=== PATIENT | female | born 1970 | race Caucasian/White ===

== ENCOUNTER 2017-08-06 18:37 | Inpatient (IN) ==
[2017-08-06] MEDS ORDERED: Dextrose Gel 15 GM/37.5 ML TUBE PO PRN ×2 (19:43)
[2017-08-06] MEDS ORDERED: D5% in Water 1,000 ML IVC PRN (19:43)
[2017-08-06] MEDS ORDERED: *HR* Dextrose 50 % in Water (Syg) 50 ML SYRINGE IVP PRN (19:43)
[2017-08-06] MEDS ORDERED: MOM Conc 10 ML UD.LIQ PO PRN (19:48)
[2017-08-06] MEDS ORDERED: *HR* LORazepam 2 MG/ML VIAL IM PRN (19:48)
[2017-08-06] MEDS ORDERED: *HR* LORazepam 1 MG TABLET PO PRN (19:48)
[2017-08-06] MEDS ORDERED: Haloperidol Lactate 5 MG/ML VIAL IM PRN (19:48)
[2017-08-06] MEDS: clonazePAM 1 MG TABLET PO SCH (21:31)
[2017-08-06] MEDS: Nystatin SUSP 5 ML UD.LIQ PO SCH (21:32)
[2017-08-06] MEDS: Insulin LISPRO 300 UNITS/3 ML VIAL SQ SCH (21:33)
[2017-08-06] MEDS: Ibuprofen 400 MG TABLET PO PRN (21:55)
[2017-08-07] MEDS: Insulin LISPRO 300 UNITS/3 ML VIAL SQ SCH ×4 (07:59→22:04)
[2017-08-07] MEDS: clonazePAM 1 MG TABLET PO SCH (08:58)
[2017-08-07] MEDS: amLODIPine 5 MG TABLET PO SCH (08:58)
[2017-08-07] MEDS: Nystatin SUSP 5 ML UD.LIQ PO SCH ×4 (08:59→22:01)
[2017-08-07] MEDS: Nicotine 2 MG GUM BC PRN ×2 (09:02→13:22)
--- NOTE | 2017-08-07 10:23 | Psychiatry History & Physical ---
Date of Encounter: 08/07/17 Time of Encounter: 10:19 History of Present Illness Patient Stated Chief Complaint: Suicide attempt by overdose on multiple medication Medicare Admission Attestation: For traditional Medicare patients the provided hospital inpatient services are reasonable and necessary and in the case of services not specified as inpatient -only under 42 CFR 419.22 (n), that they are appropriately provided as inpatient services in accordance 42 CFR 412.3. For Critical Access Hospital the patient may reasonably be expected to be discharged or transferred to a hospital within 96 hours after admission to the Critical Access Hospital. Admitted From: Intrahospital Transfer (3B) History of Present Illness: Ms. Jacinto is a 46 year old female admitted to [facility] on the medical floor after medical stabilization. Patient overdosed on multiple medication including gabapentin, Klonopin, amitriptyline in a suicide attempt after having relationship breakup with her significant other, patient was intubated and extubated on the medical floor and was seen by psychiatry for consultation with recommendation of admission after medical clearance. Patient reports having history of depression for most of her life and history of suicide attempts when she was younger about 20 years ago, prior to admission she was getting antidepressant medication from her primary care physician but she continued to see a counselor or therapist every 2 weeks. Patient currently denied any self-harm thoughts, she is recovering from this episodes and trying to put it behind her and move forward. Please see consultation report in the system and other medical records from the medical service. Past Med Surg Social Fam HX - Past Medical History Medical history: diabetes, liver disease, migraine - Past Psychiatric History Psychiatric history: Reports: depression, prior suicide attempt - Past Surgical History Surgical History: cholecystectomy - Social History Smoking Status: Current every day smoker Smokeless Tobacco Status: No Alcohol use: rarely Drug use: none - Family History Father Hx Family Cancer: Yes (lung) Medications & Allergies Bacitracin 1 appl TP DAILY 07/28/17 [History] Gabapentin [Neurontin] 1,200 mg PO TID 07/28/17 [History] Guaifenesin [Mucinex] 600 mg PO BID 07/28/17 [History] Loratadine [Claritin] 10 mg PO DAILY 07/28/17 [History] Meclizine HCl [Verticalm] 25 mg PO TID 07/28/17 [History] Metoprolol [Lopressor] 50 mg PO DAILY 07/28/17 [History] Omeprazole [PriLOSEC] 40 mg PO DAILY 07/28/17 [History] Potassium Chloride [K-Tab ER] 20 meq PO TID 07/28/17 [History] Ranitidine HCl [Zantac] 300 mg PO DAILY 07/28/17 [History] Spironolactone [Aldactone] 50 mg PO BID 07/28/17 [History] 3 Allergy/AdvReac Type Severity Reaction Status Date / Time acetaminophen [From Percocet] Allergy Weakness Verified 08/02/17 12:11 carisoprodol [From Soma] Allergy Anaphylaxis Verified 07/28/17 14:38 codeine Allergy Anaphylaxis Verified 07/28/17 14:38 Erythromycin Base Allergy Anaphylaxis Verified 07/28/17 14:38 [From Erythrocin] lisinopril Allergy Anaphylaxis Verified 07/28/17 14:38 meperidine [From Demerol] Allergy Anaphylaxis Verified 07/28/17 14:38 olanzapine [From Zyprexa] Allergy Anaphylaxis Verified 07/28/17 14:38 Oxycodone [From Percocet] Allergy Anaphylaxis Verified 07/28/17 14:38 Penicillins Allergy Anaphylaxis Verified 07/28/17 14:38 Tetracyclines Allergy Anaphylaxis Verified 07/28/17 14:38 Review of Systems Psychiatric: Reports: depression, anxiety, abnormal sleep pattern, suicidal ideation, hopelessness Exam - HEENT Head exam IM: Present: atraumatic Eye exam IM: Present: EOMI, normal appearance, PERRL ENT exam IM: Present: normal exam - Neurological Neurological exam: Present: CN II-XII intact - Respiratory Respiratory exam IM: Present: CTAB - GI/Abdominal GI/Abdominal exam IM: Present: normal bowel sounds, soft. Absent: tenderness - Extremities Extremities exam IM: Present: full ROM - Skin Skin exam IM: Present: dry, warm - Constitutional Vitals: Temp Pulse Resp BP 97.2 F L 91 16 154/104 08/07/17 09:00 08/07/17 09:00 08/07/17 09:00 08/07/17 09:00 General appearance: age & developmentally appropriate, well-groomed, well- nourished, obese - Musculoskeletal Gait: normal, slow, other (Using a walker) Station: relaxed Strength & Tone: normal for patient - Psychiatric Patient Orientation: Yes Person, Yes Time, Yes Place Level of alertness: Alert Behavior: calm, cooperative, anxious, guarded Psychomotor activity: Slowed Eye Contact: Maintains Eye Contact Mood Description: Euthymic/stable Affect description: congruent with mood, constricted Speech Volume: Normal Speech pattern: normal rate, normal rhythm, normal tone, fluent, spontaneous Language & Vocabulary: consistent with education Thought Process: Linear, Goal Oriented Thought Content: No Suicidal ideation, No Homicidal ideation, No Overt delusions Perceptual Disturbances: No Auditory hallucinations, No Visual hallucinations Attention Span Ability: Capable of Focused Attention Memory Description: Grossly Intact Patient Reliability: Reliable Historian Fund of knowledge: Yes abstraction ability, Yes average, Yes aware of current events Intelligence Estimate: Average Judgment: Limited Insight: Partial Results - Labs Labs: Laboratory Last Values POC Glucose 120 mg/dL (70-99) H 08/07/17 07:46 Assessment and Plan (1) Severe recurrent major depression without psychotic features Current visit: Yes Status: Acute Plan: Admit inpatient for safety and stabilization, Close observation, Suicide Precautions per unit protocol, Encourage participation in unit milieu, Group Therapy, Monitor sleep, Monitor appetite Additional Plan: We will discontinue medication that patient overdosed on including Klonopin, gabapentin, amitriptyline and lithium. We will start Effexor SR 75 mg daily. Benefits and side effects were discussed patient is agreeable to start. Risks, benefits, side effects, alternatives discussed w/pt: Yes Patient agreeable to treatment: Yes
[2017-08-07] MEDS: Venlafaxine XR (24 HR) 75 MG CAP.ER.24H PO SCH (10:38)
[2017-08-07] MEDS: hydrOXYzine pamoate 25 MG CAPSULE PO PRN (20:25)
[2017-08-07] MEDS: traZODone 50 MG TABLET PO PRN (20:25)
[2017-08-08] MEDS ORDERED: Ipratropium/Albuterol Neb 3 ML IH ONE (00:42)
[2017-08-08] MEDS ORDERED: Ipratropium/Albuterol Neb 3 ML IH PRN (00:42)
[2017-08-08] MEDS: Ibuprofen 400 MG TABLET PO PRN ×2 (02:32→19:47)
[2017-08-08] MEDS: amLODIPine 5 MG TABLET PO SCH (10:22)
[2017-08-08] MEDS: Nystatin SUSP 5 ML UD.LIQ PO SCH ×4 (10:22→21:00)
[2017-08-08] MEDS: Venlafaxine XR (24 HR) 75 MG CAP.ER.24H PO SCH (10:22)
[2017-08-08] MEDS: Insulin LISPRO 300 UNITS/3 ML VIAL SQ SCH ×4 (10:35→19:55)
--- NOTE | 2017-08-08 14:45 | Psychiatry Progress Note ---
Date of Encounter: 08/08/17 Time of Encounter: 14:42 Subjective Interval history: Patient seen for follow-up. Case discussed with treatment team. Patient reports improvement sleep and appetite and feeling more adjusted. Denied any hopelessness or suicidal thoughts. She continued to be occupied with medication and somatic complaints. She participated in activities. She shared with me some of her plans after discharge from the hospital to live with her stepmom. Review of Systems Psychiatric: Reports: depression, anxiety, abnormal sleep pattern, suicidal ideation, hopelessness Results - Vital Signs Vital Signs: Temp Pulse Resp BP Pulse Ox 98.1 F 98 16 135/88 94 08/08/17 09:00 08/08/17 09:00 08/08/17 09:00 08/08/17 09:00 08/08/17 02:14 - Labs Labs: Laboratory Results - last 24 hr 08/07/17 08/07/17 08/08/17 16:51 20:14 10:20 POC Glucose 169 H 133 H 183 H 08/08/17 08/08/17 11:53 12:38 POC Glucose 182 H 134 H Assessment and Plan (1) Severe recurrent major depression without psychotic features Current visit: Yes Status: Acute Plan: Continue hospitalization, Close observation, Suicide Precautions per unit protocol, Encourage participation in unit milieu, Group Therapy, Monitor sleep, Monitor appetite Risks, benefits, side effects, alternatives discussed w/pt: Yes Patient agreeable to treatment: Yes Consult Discharge Plan - Plan Referrals: [facility] [Outside] - 08/13/17 2:00 pm (The above appointment is with Dr Moshe Gale for primary care follow up. Please call 24 hours before appointment for cancellations. ) [facility] [[facility]] - 09/04/17 3:00 pm (The above appointment for a psychiatric provider is with Krista Chambers CNP. Please arrive at 2:30pm to do paperwork and bring Insurance card, list of medications and photo ID. Please call 24 hours ahead for cancellations. ) [facility] [Outside] - 08/12/17 12:00 pm (The above appointment is with Roosevelt Pinto for outpatient mental health counselling. Please call 24 hours before appointment for cancellations.) Psychiatry Exam - Constitutional Vitals: Temp Pulse Resp BP Pulse Ox 98.1 F 98 16 135/88 94 08/08/17 09:00 08/08/17 09:00 08/08/17 09:00 08/08/17 09:00 08/08/17 02:14 General appearance: age & developmentally appropriate, well-groomed, well- nourished, obese - Musculoskeletal Gait: normal Station: relaxed Strength & Tone: normal for patient - Psychiatric Patient Orientation: Yes Person, Yes Time, Yes Place Level of alertness: Alert Behavior: calm, cooperative Psychomotor activity: Normal Eye Contact: Maintains Eye Contact Mood Description: Euthymic/stable Affect description: congruent with mood, full range Speech Volume: Normal Speech pattern: normal rate, normal rhythm, normal tone, fluent, spontaneous Language & Vocabulary: consistent with education Thought Process: Linear, Goal Oriented Thought Content: No Suicidal ideation, No Homicidal ideation, No Overt delusions Perceptual Disturbances: No Auditory hallucinations, No Visual hallucinations Attention Span Ability: Capable of Focused Attention Memory Description: Grossly Intact Patient Reliability: Reliable Historian Fund of knowledge: Yes abstraction ability, Yes aware of current events Intelligence Estimate: Average Judgment: Limited Insight: Partial
[2017-08-08] MEDS: hydrOXYzine pamoate 25 MG CAPSULE PO PRN (21:01)
[2017-08-08] MEDS: traZODone 50 MG TABLET PO PRN (21:01)
[2017-08-09] MEDS: Insulin LISPRO 300 UNITS/3 ML VIAL SQ SCH ×4 (08:29→23:59)
[2017-08-09] MEDS: Venlafaxine XR (24 HR) 75 MG CAP.ER.24H PO SCH (08:30)
[2017-08-09] MEDS: amLODIPine 5 MG TABLET PO SCH (08:30)
[2017-08-09] MEDS: Nystatin SUSP 5 ML UD.LIQ PO SCH ×3 (08:42→16:38)
[2017-08-09] MEDS: Mag Hydrox/Al Hydrox/Simeth 30 ML UDC PO PRN (13:46)
--- NOTE | 2017-08-09 15:07 | Psychiatry Progress Note ---
Date of Encounter: 08/09/17 Time of Encounter: 15:05 Subjective Interval history: Patient seen for follow-up. Case discussed was nursing staff. Patient is less anxious, less somatic, denies problem with sleep. Denies any suicidal thoughts. She is working on safety plan and activity plan. She is interacting with peers and staff. Denies any suicidal thoughts, showing more insight. Review of Systems Psychiatric: Reports: depression, anxiety, abnormal sleep pattern, suicidal ideation, hopelessness Results - Vital Signs Vital Signs: Temp Pulse Resp BP Pulse Ox 98.6 F 88 18 125/88 94 08/09/17 09:00 08/09/17 09:00 08/09/17 09:00 08/09/17 09:00 08/08/17 02:14 - Labs Labs: Laboratory Results - last 24 hr 08/08/17 08/08/17 08/09/17 16:31 19:50 08:14 POC Glucose 125 H 156 H 144 H 08/09/17 11:44 POC Glucose 130 H Assessment and Plan (1) Severe recurrent major depression without psychotic features Current visit: Yes Status: Acute Plan: Continue hospitalization, Close observation, Suicide Precautions per unit protocol, Encourage participation in unit milieu, Group Therapy, Monitor sleep, Monitor appetite Risks, benefits, side effects, alternatives discussed w/pt: Yes Patient agreeable to treatment: Yes Consult Discharge Plan - Plan Referrals: [facility] [Outside] - 08/13/17 2:00 pm (The above appointment is with Dr Moshe Gale for primary care follow up. Please call 24 hours before appointment for cancellations. ) [facility] [[facility]] - 09/04/17 3:00 pm (The above appointment for a psychiatric provider is with Krista Chambers CNP. Please arrive at 2:30pm to do paperwork and bring Insurance card, list of medications and photo ID. Please call 24 hours ahead for cancellations. ) [facility] [Outside] - 08/12/17 12:00 pm (The above appointment is with Roosevelt Pinto for outpatient mental health counselling. Please call 24 hours before appointment for cancellations.) Psychiatry Exam - Constitutional Vitals: Temp Pulse Resp BP Pulse Ox 98.6 F 88 18 125/88 94 08/09/17 09:00 08/09/17 09:00 08/09/17 09:00 08/09/17 09:00 08/08/17 02:14 General appearance: age & developmentally appropriate, well-groomed, well- nourished, obese - Musculoskeletal Gait: normal Station: relaxed Strength & Tone: normal for patient - Psychiatric Patient Orientation: Yes Person, Yes Time, Yes Place Level of alertness: Alert Behavior: calm, cooperative Psychomotor activity: Normal Eye Contact: Maintains Eye Contact Mood Description: Euthymic/stable Affect description: congruent with mood, full range Speech Volume: Normal Speech pattern: normal rate, normal rhythm, normal tone, fluent, spontaneous Language & Vocabulary: consistent with education Thought Process: Linear, Goal Oriented Thought Content: No Suicidal ideation, No Homicidal ideation, No Overt delusions Perceptual Disturbances: No Auditory hallucinations, No Visual hallucinations Attention Span Ability: Capable of Focused Attention Memory Description: Grossly Intact Patient Reliability: Reliable Historian Fund of knowledge: Yes abstraction ability, Yes aware of current events Intelligence Estimate: Average Judgment: Limited Insight: Partial
[2017-08-09] MEDS: Ibuprofen 400 MG TABLET PO PRN ×2 (16:30→22:11)
[2017-08-09] MEDS: traZODone 50 MG TABLET PO PRN (22:12)
[2017-08-09] MEDS: hydrOXYzine pamoate 25 MG CAPSULE PO PRN (22:12)
[2017-08-10] MEDS: Insulin LISPRO 300 UNITS/3 ML VIAL SQ SCH ×4 (06:50→21:08)
[2017-08-10] MEDS: Venlafaxine XR (24 HR) 75 MG CAP.ER.24H PO SCH (08:49)
[2017-08-10] MEDS: amLODIPine 5 MG TABLET PO SCH (08:50)
[2017-08-10] MEDS: Nystatin SUSP 5 ML UD.LIQ PO SCH ×5 (09:19→21:06)
[2017-08-10] MEDS: Mag Hydrox/Al Hydrox/Simeth 30 ML UDC PO PRN (12:21)
[2017-08-10] MEDS: hydrOXYzine pamoate 25 MG CAPSULE PO PRN ×2 (12:21→21:03)
[2017-08-10] MEDS: Ibuprofen 400 MG TABLET PO PRN ×2 (12:22→23:26)
--- NOTE | 2017-08-10 13:46 | Psychiatry Progress Note ---
Date of Encounter: 08/10/17 Time of Encounter: 11:30 Subjective Interval history: Patient seen for follow-up case discussed was nursing staff. She is feeling better, complain of mid insomnia, denies any problem with medication and no somatic complaints. She denies suicidal thoughts, showing more insight and motivation to stay active after discharge to prevent relapse into depression. Review of Systems Psychiatric: Reports: depression, anxiety, abnormal sleep pattern, suicidal ideation, hopelessness Results - Vital Signs Vital Signs: Temp Pulse Resp BP Pulse Ox 98 F 121 22 119/80 94 08/10/17 09:00 08/10/17 09:00 08/10/17 09:00 08/10/17 09:00 08/08/17 02:14 - Labs Labs: Laboratory Results - last 24 hr 08/09/17 08/09/17 08/10/17 16:34 22:08 06:46 POC Glucose 132 H 129 H 168 H 08/10/17 11:31 POC Glucose 155 H Assessment and Plan (1) Severe recurrent major depression without psychotic features Current visit: Yes Status: Acute Plan: Continue hospitalization, Close observation, Suicide Precautions per unit protocol, Encourage participation in unit milieu, Group Therapy, Monitor sleep, Monitor appetite Risks, benefits, side effects, alternatives discussed w/pt: Yes Patient agreeable to treatment: Yes Consult Discharge Plan - Plan Referrals: [facility] [Outside] - 08/13/17 2:00 pm (The above appointment is with Dr Moshe Gale for primary care follow up. Please call 24 hours before appointment for cancellations. ) [facility] [[facility]] - 09/04/17 3:00 pm (The above appointment for a psychiatric provider is with Krista Chambers CNP. Please arrive at 2:30pm to do paperwork and bring Insurance card, list of medications and photo ID. Please call 24 hours ahead for cancellations. ) [facility] [Outside] - 08/12/17 12:00 pm (The above appointment is with Roosevelt Pinto for outpatient mental health counselling. Please call 24 hours before appointment for cancellations.) Psychiatry Exam - Constitutional Vitals: Temp Pulse Resp BP Pulse Ox 98 F 121 22 119/80 94 08/10/17 09:00 08/10/17 09:00 08/10/17 09:00 08/10/17 09:00 08/08/17 02:14 General appearance: age & developmentally appropriate, well-groomed, well- nourished, obese - Musculoskeletal Gait: normal Station: relaxed Strength & Tone: normal for patient - Psychiatric Patient Orientation: Yes Person, Yes Time, Yes Place Level of alertness: Alert Behavior: calm, cooperative Psychomotor activity: Normal Eye Contact: Maintains Eye Contact Mood Description: Euthymic/stable Affect description: congruent with mood, full range Speech Volume: Normal Speech pattern: normal rate, normal rhythm, normal tone, fluent, spontaneous Language & Vocabulary: consistent with education Thought Process: Linear, Goal Oriented Thought Content: No Suicidal ideation, No Homicidal ideation, No Overt delusions Perceptual Disturbances: No Auditory hallucinations, No Visual hallucinations Attention Span Ability: Capable of Focused Attention Memory Description: Grossly Intact Patient Reliability: Reliable Historian Fund of knowledge: Yes abstraction ability, Yes aware of current events Intelligence Estimate: Average Judgment: Limited Insight: Partial
[2017-08-10] MEDS: traZODone 50 MG TABLET PO PRN (21:03)
[2017-08-11] MEDS: Insulin LISPRO 300 UNITS/3 ML VIAL SQ SCH ×4 (08:03→20:19)
[2017-08-11] MEDS: amLODIPine 5 MG TABLET PO SCH (09:08)
[2017-08-11] MEDS: Venlafaxine XR (24 HR) 75 MG CAP.ER.24H PO SCH (09:08)
[2017-08-11] MEDS: Nystatin SUSP 5 ML UD.LIQ PO SCH ×4 (09:09→20:20)
--- NOTE | 2017-08-11 11:13 | Psychiatry Progress Note ---
Date of Encounter: 08/11/17 Time of Encounter: 11:00 Subjective Interval history: Patient tells me "I am doing okay. I am still emotional over the situation that put me in here". She tells me that she has been reviewing and looking at her actions/reaction, trying to hurt herself via an overdose attempt by " shoving four hundred pills down my throat". She talks about how she should have done things differently and how she would do things differently in the future. She states that a breakup in a relationship is not worth hurting herself. She is working on her communication; expressing her needs and wants to other people to help get support. She currently denies any suicidal/ homicidal ideation. She currently denies any auditory/visual hallucinations. She states that she is having some problems sleeping, but she does not have her CPAP here which would help. She states that the Effexor has been helpful. She is not feeling as depressed. She states she is concerned about what will happen after she leaves here in regards to housing. She states that she knows that she currently with her stepmom for up to a month, not sure what is going to happen after that. She understands that her medications had been stopped including her lithium, Klonopin, amitriptyline and gabapentin. She will talk to her medical doctor about finding other medications to help with her pain control. She is angry still at her ex-partner who has not come to visit her while she was here but understands the situation. She states that she is preparing to be discharged soon and is making outpatient appointments to to follow-up. Review of Systems Psychiatric: Reports: depression, anxiety, abnormal sleep pattern, suicidal ideation, hopelessness Results - Vital Signs Vital Signs: Temp Pulse Resp BP Pulse Ox 97.2 F L 93 16 158/98 94 08/11/17 09:00 08/11/17 09:00 08/11/17 09:00 08/11/17 09:00 08/08/17 02:14 - Labs Labs: Laboratory Results - last 24 hr 08/10/17 08/10/17 08/10/17 11:31 16:20 20:30 POC Glucose 155 H 139 H 105 H 08/11/17 07:57 POC Glucose 151 H Assessment and Plan (1) Severe recurrent major depression without psychotic features Current visit: Yes Status: Acute Plan: Continue hospitalization, Close observation, Suicide Precautions per unit protocol, Encourage participation in unit milieu, Group Therapy, Monitor sleep Risks, benefits, side effects, alternatives discussed w/pt: Yes Patient agreeable to treatment: Yes Consult Discharge Plan - Plan Referrals: [facility] [[facility]] - 08/13/17 2:00 pm (The above appointment is with Dr Moshe Gale for primary care follow up. Please call 24 hours before appointment for cancellations. ) [facility] [[facility]] - 09/04/17 3:00 pm (The above appointment for a psychiatric provider is with Krista Chambers CNP. Please arrive at 2:30pm to do paperwork and bring Insurance card, list of medications and photo ID. Please call 24 hours ahead for cancellations. ) [facility] [[facility]] - 08/12/17 12:00 pm (The above appointment is with Roosevelt Pinto for outpatient mental health counselling. Please call 24 hours before appointment for cancellations.) Psychiatry Exam - Constitutional Vitals: Temp Pulse Resp BP Pulse Ox 97.2 F L 93 16 158/98 94 08/11/17 09:00 08/11/17 09:00 08/11/17 09:00 08/11/17 09:00 08/08/17 02:14 General appearance: obese - Musculoskeletal Gait: other (utilizes a walker for ambulation) Station: stooped Strength & Tone: normal for patient - Psychiatric Patient Orientation: Yes Person, Yes Time, Yes Place, Yes Circumstance Level of alertness: Alert Behavior: anxious Psychomotor activity: Normal Eye Contact: Maintains Eye Contact Mood Description: Anxious Affect description: congruent with mood Speech Volume: Normal Speech pattern: normal rate, normal rhythm, normal tone Language & Vocabulary: consistent with education Thought Process: Intact, Logical, Linear Thought Content: Yes Intact Attention Span Ability: Capable of Focused Attention Memory Description: Grossly Intact Patient Reliability: Questionable Historian Fund of knowledge: Yes abstraction ability Intelligence Estimate: Average Judgment: Fair Insight: Partial
[2017-08-11] MEDS: hydrOXYzine pamoate 25 MG CAPSULE PO PRN ×2 (14:36→20:40)
[2017-08-11] MEDS: Ibuprofen 400 MG TABLET PO PRN (14:36)
[2017-08-12] MEDS: Mag Hydrox/Al Hydrox/Simeth 30 ML UDC PO PRN (00:49)
[2017-08-12] MEDS: Venlafaxine XR (24 HR) 75 MG CAP.ER.24H PO SCH (08:09)
[2017-08-12] MEDS: Insulin LISPRO 300 UNITS/3 ML VIAL SQ SCH ×2 (08:10→12:04)
[2017-08-12] MEDS: amLODIPine 5 MG TABLET PO SCH (08:10)
[2017-08-12] MEDS: Nystatin SUSP 5 ML UD.LIQ PO SCH (08:31)
[2017-08-12 09:36] VITALS: BP 134/92
--- NOTE | 2017-08-12 11:27 | Discharge Summary ---
Date of Encounter: 08/12/17 Time of Encounter: 11:00 Diagnosis - Discharge Diagnosis (1) Severe recurrent major depression without psychotic features Status: Acute Medications - Discharge Medications Prescriptions: Nicotine Gum [Nicorette gum] 4 mg BC Q2H PRN 30 Days #90 gum PRN Reason: Nicotine Cravings Venlafaxine XR (24 HR) [Effexor XR] 75 mg PO DAILY 30 Days #30 cap.er.24h Bacitracin 1 appl TP DAILY 07/28/17 [History] Gabapentin [Neurontin] 1,200 mg PO TID 07/28/17 [History] Guaifenesin [Mucinex] 600 mg PO BID 07/28/17 [History] Loratadine [Claritin] 10 mg PO DAILY 07/28/17 [History] Meclizine HCl [Verticalm] 25 mg PO TID 07/28/17 [History] Metoprolol [Lopressor] 50 mg PO DAILY 07/28/17 [History] Omeprazole [PriLOSEC] 40 mg PO DAILY 07/28/17 [History] Potassium Chloride [K-Tab ER] 20 meq PO TID 07/28/17 [History] Ranitidine HCl [Zantac] 300 mg PO DAILY 07/28/17 [History] Spironolactone [Aldactone] 50 mg PO BID 07/28/17 [History] Albuterol Sulfate [Albuterol Inhaler] 2 puff IH [id number] PRN inhaler 08/12/17 [ Rx] Citalopram [CeleXA] 40 mg PO DAILY tablet 08/12/17 [Rx] Insulin LISPRO [HumaLOG] 0 units SQ HS vial 08/12/17 [Rx] Insulin LISPRO [HumaLOG] 0 units SQ TIDAC vial 08/12/17 [Rx] Nicotine Gum [Nicorette gum] 4 mg BC Q2H PRN 30 Days #90 gum 08/12/17 [Rx] Venlafaxine XR (24 HR) [Effexor XR] 75 mg PO DAILY 30 Days #30 cap.er.24h [Rx] 3 Allergy/AdvReac Type Severity Reaction Status Date / Time acetaminophen [From Percocet] Allergy Weakness Verified 08/02/17 12:11 carisoprodol [From Soma] Allergy Anaphylaxis Verified 07/28/17 14:38 codeine Allergy Anaphylaxis Verified 07/28/17 14:38 Erythromycin Base Allergy Anaphylaxis Verified 07/28/17 14:38 [From Erythrocin] lisinopril Allergy Anaphylaxis Verified 07/28/17 14:38 meperidine [From Demerol] Allergy Anaphylaxis Verified 07/28/17 14:38 olanzapine [From Zyprexa] Allergy Anaphylaxis Verified 07/28/17 14:38 Oxycodone [From Percocet] Allergy Anaphylaxis Verified 07/28/17 14:38 Penicillins Allergy Anaphylaxis Verified 07/28/17 14:38 Tetracyclines Allergy Anaphylaxis Verified 07/28/17 14:38 Provider Date of admission: 08/06/17 18:37 Primary care physician: PCP NONE Psychiatry Exam - Constitutional Vitals: Temp Pulse Resp BP Pulse Ox 97.9 F 98 16 134/92 94 08/12/17 09:00 08/12/17 09:00 08/12/17 09:00 08/12/17 09:00 08/08/17 02:14 General appearance: age & developmentally appropriate - Musculoskeletal Gait: other (Utilizes walker) Station: relaxed Strength & Tone: normal for patient - Psychiatric Patient Orientation: Yes Person, Yes Time, Yes Place, Yes Circumstance Level of alertness: Alert Behavior: calm Psychomotor activity: Normal Eye Contact: Maintains Eye Contact Mood Description: Depressed (mild) Affect description: congruent with mood Speech Volume: Normal Speech pattern: normal rate, normal rhythm, normal tone Language & Vocabulary: consistent with education Thought Process: Intact, Logical, Linear, Goal Oriented Thought Content: Yes Intact Attention Span Ability: Capable of Focused Attention Memory Description: Grossly Intact Patient Reliability: Reliable Historian Fund of knowledge: Yes abstraction ability Intelligence Estimate: Average Judgment: Good Insight: Full Hospital Course Hospital course: Ms. Jacinto is a 46 year old female who was admitted after a suicide attempt and placed on a medical floor till medically cleared for admission onto the 1A unit for treatment of her mental health. Her medications were adjusted and she was started on Effexor XR targeting her depressive symptoms. She was attending groups and individual therapy. She discussed and processed her reaction and suicide attempt. She understaood that some of her medications had been adjusted secondary to her overdose. She will be living with her step mother when discharged and will continue follow up therapy dealing with her life situation and move forward in finding a more stable resolution. She denies any side effects of her medications. She tells me "I'm okay". She talked about having an upset stomach from something she ate the previous night, but feeling better and stable in her emotional health and ready to discharge. She is still having an issue with sleep and does not find the Trazodone to be helpful. She believes it has to do in large part secondary to not having CPAP and the type of bed she is sleeping in. She is not as depressed as she had been and is hopeful and found comfort in the help she received. She has more energy and is not isolating as she had been. She denies SI/HI, A/V hallucination. Time spent discussing smoking cessation with patient: 3 to 10 minutes Does patient wish to continue nicotine replacement upon disc: Yes (Wants nicotine gum to help stop smoking) - Time Spent with Patient Total time spent providing and/or coordinating discharge services: 25 min Less than 30 minutes Assessment and Plan - Patient/Caregiver Discharge Instructions Activity: resume usual activities as tolerated Diet: diabetic diet - Follow up Plan Follow up with: [facility] [Outside] - 08/13/17 2:00 pm (The above appointment is with Dr Moshe Gale for primary care follow up. Please call 24 hours before appointment for cancellations. ) [facility] [Outside] - 09/04/17 3:00 pm (The above appointment for a psychiatric provider is with Krista Chambers CNP. Please arrive at 2:30pm to do paperwork and bring Insurance card, list of medications and photo ID. Please call 24 hours ahead for cancellations. ) [facility] [Outside] - 08/12/17 12:00 pm (The above appointment is with Roosevelt Pinto for outpatient mental health counselling. Please call 24 hours before appointment for cancellations.) Functional capacity at discharge: uses cane/walker Overall status at discharge: Stable Disposition: Home, Self-Care Quality - Multiple Antipsychotics Patient discharged on 2 or more antipsychotic medications: No Procedures - Procedures Procedures: Medication Management, Crisis Stabilization, Supportive Therapy, Group Therapy, Psychoeducational Therapy
[2017-08-12] MEDS: Ibuprofen 400 MG TABLET PO PRN (12:06)
== END 2017-08-12 12:10 | disposition home or self-care (01) | DRG 751 ==
LOC: 1ANU 18:37 → SUATTDRO 18:37
PROVIDERS: ADMIT Psychiatry & Neurology Psychiatry; ATTEND Psychiatry & Neurology Psychiatry

== ENCOUNTER 2018-01-23 13:59 | Inpatient (IN) ==
[2018-01-23] MEDS ORDERED: 0.9 % Sodium Chloride 1,000 ML IVC ONE (14:03)
[2018-01-23] MEDS ORDERED: Albuterol 2.5 MG/3 ML NEBULIZER IH ONE (14:03)
[2018-01-23] MEDS ORDERED: Ondansetron 4 MG/2 ML VIAL ONE (14:03)
[2018-01-23] MEDS ORDERED: 0.9 % Sodium Chloride 1,000 ML ONE (14:05)
[2018-01-23] MEDS ORDERED: Ondansetron 4 MG/2 ML VIAL IVP ONE (14:17)
[2018-01-23 14:24] LABS: Basophils # 0.1 K/mcL (0.0-0.2); Basophils % 1.1 %; Eosinophils # 0.1 K/mcL (0.0-0.6); Eosinophils % 1.2 %; Hematocrit 44.7 % (35.3-44.9); Hemoglobin 15.1 g/dL (11.5-15.4); Immature Granulocytes % 2.5 % (0-4); Lymphocytes # 2.4 K/mcL (0.6-4.6); Lymphocytes % 28.5 %; Mean Corpuscular HGB Conc 33.8 g/dL (31.6-35.5); Mean Corpuscular Hemoglobin 28.7 pg (28.0-33.3); Mean Platelet Volume 9.9 fL (9.4-12.4); Monocytes # 0.7 K/mcL (0.0-1.3); Monocytes % 7.6 %; Neutrophils # 5.1 K/mcL (1.6-8.9); Platelet Count 238 K/mcL (140-400); Red Blood Count 5.26 M/mcL (3.82-4.97); Red Cell Distribution Width 15.4 % (11.5-14.5); Segmented Neutrophils % 59.1 %
--- NOTE | 2018-01-23 14:26 | Emergency Department Note ---
Disposition Clinical Impression: Suicide attempt Overdose Qualifiers: Encounter type: initial encounter Injury intent: intentional self-harm Qualified Code(s): T50.902A - Poisoning by unspecified drugs, medicaments and biological substances, intentional self-harm, initial encounter Disposition: Admitted As Inpatient Condition: Fair Referrals: NONE,PCP [Primary Care Provider] - Forms: ED Satisfaction Letter Time of Disposition: 15:23 General Adult HPI - General Chief complaint: ED Overdose Stated complaint: poos OD Time Seen by Provider: 01/23/18 14:03 Source: patient, EMS Mode of arrival: EMS Limitations: no limitations Nursing Notes Reviewed: Yes Vital Signs Reviewed: Yes - History of Present Illness HPI Narrative: 47-year-old female with significant past medical history of multiple suicide attempts by ingestion previously presenting to the emergency department with drug ingestion. Patient states stated she was going to break up with her so she intentionally took multiple doses of her home medications. She discloses taking 100-99mg potassium pills, 25-5mg Zyprexa pills, 85-100mg trazodone pills. Zyprexa was a previous prescription. The potassium pills her from [id number] in the trazodone pills her dogs. Patient states she purposely took the medications and attempt to hurt herself. Patient denies any other intentional ingestions. She states she is feeling "full" in her abdomen and having some nausea but denies any other symptoms at this time. Pain Scale: 0 - Related Data Home Medications Medication Instructions Recorded Confirmed Bacitracin 1 appl TP DAILY 07/28/17 08/07/17 Gabapentin [Neurontin] 1,200 mg PO TID 07/28/17 08/07/17 Guaifenesin [Mucinex] 600 mg PO BID 07/28/17 08/07/17 Loratadine [Claritin] 10 mg PO DAILY 07/28/17 08/07/17 Meclizine HCl [Verticalm] 25 mg PO TID 07/28/17 08/07/17 Metoprolol [Lopressor] 50 mg PO DAILY 07/28/17 08/07/17 Omeprazole [PriLOSEC] 40 mg PO DAILY 07/28/17 08/07/17 Potassium Chloride [K-Tab ER] 20 meq PO TID 07/28/17 08/07/17 Ranitidine HCl [Zantac] 300 mg PO DAILY 07/28/17 08/07/17 Spironolactone [Aldactone] 50 mg PO BID 07/28/17 08/07/17 Previous Rx's Medication Instructions Recorded Albuterol Sulfate [Albuterol 2 puff IH [id number] PRN inhaler 08/12/17 Inhaler] Citalopram [CeleXA] 40 mg PO DAILY tablet 08/12/17 Insulin LISPRO [HumaLOG] 0 units SQ HS vial 08/12/17 Insulin LISPRO [HumaLOG] 0 units SQ TIDAC vial 08/12/17 Nicotine Gum [Nicorette gum] 4 mg BC Q2H PRN 30 Days #90 gum 08/12/17 Venlafaxine XR (24 HR) [Effexor XR] 75 mg PO DAILY 30 Days #30 08/12/17 cap.er.24h Allergies Allergy/AdvReac Type Severity Reaction Status Date / Time acetaminophen [From Percocet] Allergy Weakness Verified 08/02/17 12:11 carisoprodol [From Soma] Allergy Anaphylaxis Verified 07/28/17 14:38 codeine Allergy Anaphylaxis Verified 07/28/17 14:38 Erythromycin Base Allergy Anaphylaxis Verified 07/28/17 14:38 [From Erythrocin] lisinopril Allergy Anaphylaxis Verified 07/28/17 14:38 meperidine [From Demerol] Allergy Anaphylaxis Verified 07/28/17 14:38 olanzapine [From Zyprexa] Allergy Anaphylaxis Verified 07/28/17 14:38 Oxycodone [From Percocet] Allergy Anaphylaxis Verified 07/28/17 14:38 Penicillins Allergy Anaphylaxis Verified 07/28/17 14:38 Tetracyclines Allergy Anaphylaxis Verified 07/28/17 14:38 Limitations: ROS unobtainable due to patients medical condition Past Medical History - Past Medical History Attestation: Yes The following information was validated with the patient. Source: old records reviewed Medical history: Reports: cirrhosis, diabetes, GERD, liver disease, migraine, renal disease Surgical history: Reports: cholecystectomy Psychiatric history: Reports: bipolar, depression, PTSD, prior suicide attempt - Social History Smoking Status: Current every day smoker Smokeless Tobacco Status: No Alcohol use: Reports: rarely Drug use: Reports: opiates Physical Exam - General Limitations: no limitations General appearance: alert - Head Head exam: atraumatic, normocephalic, normal inspection - Eye Eye exam: Absent: scleral icterus, conjunctival injection - ENT ENT exam: mucous membranes dry - Neck Neck exam: Present: normal inspection. Absent: tenderness - Chest Chest inspection: Present: normal inspection, symmetric chest wall rise. Absent: tenderness, rash - Respiratory Respiratory exam: Present: normal lung sounds bilaterally. Absent: respiratory distress, wheezes - Cardiovascular Cardiovascular exam: Present: regular rate, normal rhythm, normal heart sounds - Abdominal Exam Abdominal exam: Present: soft, tenderness. Absent: distention, guarding, rebound, rigidity Abdominal tenderness: Present: diffuse, mild - Extremities Exam Extremities exam: Present: normal inspection, full ROM - Neurological Exam Neurological exam: Present: alert, oriented X3 - Psychiatric Psychiatric exam: Present: suicidal ideation - Skin Skin exam: Present: warm, intact Course Course Narrative: 47-year-old female presenting with intentional overdose. Multiple medications. Pharmacy at bedside. Patient given 9 mL of albuterol. Patient also received activated charcoal. Chest x-ray and KUB completed. I spoke with poison control center who suggested provide the patient with 2 g of magnesium due to QTC 513. They recommend other screening labs. At this time will perform medical clear ance labs with acetaminophen Tylenol, etc. Disposition will be admission for medical clearance and then psychiatric evaluation. Pending results. - Reevaluation(s) Reevaluation #1: Patient's laboratory analysis unchanged from baseline. Patient remains alert and oriented 3 and hemodynamically stable in the room. At this time will plan to admit her to the ICU for further evaluation and treatment for her overdose. I spoke with the market risk manager sales operations analyst Dr. Tyler who agrees to accept the patient at this time. Patient will be admitted with a pink slip. Vital Signs Temperature 97.9 F 01/23/18 14:02 Pulse Rate 73 01/23/18 14:02 Respiratory Rate 16 01/23/18 14:02 Blood Pressure 120/77 01/23/18 14:02 O2 Sat by Pulse Oximetry 98 01/23/18 14:02 Temperature 97.9 F 01/23/18 14:02 Pulse Rate 83 01/23/18 15:06 Respiratory Rate 26 01/23/18 15:06 Blood Pressure 139/84 01/23/18 15:06 O2 Sat by Pulse Oximetry 99 01/23/18 15:06 Oxygen Delivery Oxygen Delivery Nasal Cannula Medical Decision Making - Lab Data Result diagrams: 01/23/18 14:08 01/23/18 14:08 Lab Results 01/23/18 01/23/18 01/23/18 Range/Units 14:08 14:08 14:08 WBC 8.5 (4.3-11.1) K/mcL RBC 5.26 H (3.82-4.97) M/mcL Hgb 15.1 (11.5-15.4) g/dL Hct 44.7 (35.3-44.9) % MCV 85.0 (83.0-100.0) fL MCH 28.7 (28.0-33.3) pg MCHC 33.8 (31.6-35.5) g/dL RDW 15.4 H (11.5-14.5) % Plt Count 238 (140-400) K/mcL MPV 9.9 (9.4-12.4) fL Immature Gran % 2.5 (0-4) % Seg Neutrophils % 59.1 % Lymphocytes % 28.5 % Monocytes % 7.6 % Eosinophils % 1.2 % Basophils % 1.1 % Neutrophils # 5.1 (1.6-8.9) K/mcL Lymphocytes # 2.4 (0.6-4.6) K/mcL Monocytes # 0.7 (0.0-1.3) K/mcL Eosinophils # 0.1 (0.0-0.6) K/mcL Basophils # 0.1 (0.0-0.2) K/mcL Sodium 136 (136-145) mEq/L Potassium 4.0 (3.5-5.1) mEq/L Chloride 105 (98-107) mEq/L Carbon Dioxide 24 (23-29) mEq/L BUN 18 (6-20) mg/dL Creatinine 0.70 (0.60-1.20) mg/dL Est GFR ( Amer) > 60 (> 60) Est GFR (Non-Af Amer) > 60 (> 60) BUN/Creatinine Ratio 26 (6-26) Glucose 304 H (70-105) mg/dL Calculated Osmolality 295 (280-300) Lactic Acid 2.9 H (0.5-2.2) mmol/L Calcium 8.7 (8.6-10.3) mg/dL Total Bilirubin 0.4 (0.3-1.0) mg/dL Direct Bilirubin 0.1 (0.0-0.2) mg/dL Indirect Bilirubin 0.3 (0.0-1.2) mg/dL AST 11 L (13-39) Units/L ALT 21 (7-52) Units/L Alkaline Phosphatase 150 H (34-104) Units/L Serum Total Protein 6.1 L (6.4-8.9) g/dL Albumin 3.7 (3.5-5.7) g/dL Globulin 2.4 (2.4-3.5) g/dL Albumin/Globulin Ratio 1.5 (1.1-2.2) Urine Color (Yellow) Urine Clarity (Clear) Urine pH (5.0-8.0) pH Units Ur Specific [place] (1.010-1.025) Urine Protein (Neg-Trace) mg/dL Urine Glucose (UA) (Normal) mg/dL Urine Ketones (Negative) mg/dL Urine Blood (Negative) Urine Nitrite (Negative) Urine Bilirubin (Negative) Urine Urobilinogen (Normal) mg/dL Ur Leukocyte Esterase (Negative) Salicylates < 2.5 L (15.0-30.0) mg/dL Urine Opiates Screen (Vendri=320) ng/mL Acetaminophen < 10 L (10-20) mcg/mL Ur Barbiturates Screen (Qhtxxb=899) ng/mL Ur Phencyclidine Scrn (Cutoff=25) ng/mL Ur Amphetamines Screen (Zkvynn=3148) ng/mL U Benzodiazepines Scrn (Tfckcc=961) ng/mL Urine Cocaine Screen (Cutoff= 300) ng/mL U Marijuana (THC) Screen (Cutoff = 50) ng/mL Ur Drug Screen Interp Ethyl Alcohol < 10 (Less than 10) mg/dL 01/23/18 01/23/18 Range/Units 14:33 14:33 WBC (4.3-11.1) K/mcL RBC (3.82-4.97) M/mcL Hgb (11.5-15.4) g/dL Hct (35.3-44.9) % MCV (83.0-100.0) fL MCH (28.0-33.3) pg MCHC (31.6-35.5) g/dL RDW (11.5-14.5) % Plt Count (140-400) K/mcL MPV (9.4-12.4) fL Immature Gran % (0-4) % Seg Neutrophils % % Lymphocytes % % Monocytes % % Eosinophils % % Basophils % % Neutrophils # (1.6-8.9) K/mcL Lymphocytes # (0.6-4.6) K/mcL Monocytes # (0.0-1.3) K/mcL Eosinophils # (0.0-0.6) K/mcL Basophils # (0.0-0.2) K/mcL Sodium (136-145) mEq/L Potassium (3.5-5.1) mEq/L Chloride (98-107) mEq/L Carbon Dioxide (23-29) mEq/L BUN (6-20) mg/dL Creatinine (0.60-1.20) mg/dL Est GFR ( Amer) (> 60) Est GFR (Non-Af Amer) (> 60) BUN/Creatinine Ratio (6-26) Glucose (70-105) mg/dL Calculated Osmolality (280-300) Lactic Acid (0.5-2.2) mmol/L Calcium (8.6-10.3) mg/dL Total Bilirubin (0.3-1.0) mg/dL Direct Bilirubin (0.0-0.2) mg/dL Indirect Bilirubin (0.0-1.2) mg/dL AST (13-39) Units/L ALT (7-52) Units/L Alkaline Phosphatase (34-104) Units/L Serum Total Protein (6.4-8.9) g/dL Albumin (3.5-5.7) g/dL Globulin (2.4-3.5) g/dL Albumin/Globulin Ratio (1.1-2.2) Urine Color Yellow (Yellow) Urine Clarity Clear (Clear) Urine pH 5.0 (5.0-8.0) pH Units Ur Specific [place] 1.019 (1.010-1.025) Urine Protein Negative (Neg-Trace) mg/dL Urine Glucose (UA) >=1000 H (Normal) mg/dL Urine Ketones Negative (Negative) mg/dL Urine Blood Negative (Negative) Urine Nitrite Negative (Negative) Urine Bilirubin Negative (Negative) Urine Urobilinogen Normal (Normal) mg/dL Ur Leukocyte Esterase Negative (Negative) Salicylates (15.0-30.0) mg/dL Urine Opiates Screen Negative (Cummgh=771) ng/mL Acetaminophen (10-20) mcg/mL Ur Barbiturates Screen Negative (Lwxgwa=228) ng/mL Ur Phencyclidine Scrn Negative (Cutoff=25) ng/mL Ur Amphetamines Screen Negative (Robedy=2065) ng/mL U Benzodiazepines Scrn Negative (Guyrww=500) ng/mL Urine Cocaine Screen Negative (Cutoff= 300) ng/mL U Marijuana (THC) Screen Negative (Cutoff = 50) ng/mL Ur Drug Screen Interp See Below Ethyl Alcohol (Less than 10) mg/dL - EKG Data EKG #1 EKG attestation: Yes I reviewed and interpreted this EKG. EKG results narrative: Sinus rhythm. 70 beats for minute. IL interval 151, QRS 89, QTC 513. No sign of acute ST segment elevation or ischemia.
--- NOTE | 2018-01-23 14:28 | Emergency Department Note ---
Disposition Clinical Impression: Overdose Qualifiers: Encounter type: initial encounter Injury intent: intentional self-harm Qualified Code(s): T50.902A - Poisoning by unspecified drugs, medicaments and biological substances, intentional self-harm, initial encounter Disposition: Still a Patient Referrals: NONE,PCP [Primary Care Provider] - General Adult HPI - General Chief complaint: ED Overdose Stated complaint: poos OD Time Seen by Provider: 01/23/18 14:03 Source: patient Limitations: no limitations Nursing Notes Reviewed: Yes Vital Signs Reviewed: Yes - History of Present Illness HPI Narrative: ED ATTESTATION NOTE: I examined this patient and my medical decision-making was reviewed with the Resident Physician/MANAGER MOUNTAIN/PA/Student. I have personally performed a face to face evaluation on this patient & I agree with the documented findings, disposition and treatment plan as described except to the extent set forth below. Patient was seen with emergency medicine resident Desire Motley please see copy of her note for details of this encounter Briefly: 47-year-old female by EMS for "overdose". Patient's history prior suicide attempts and drug ingestions history includes but is not limited to bipolar disease PTSD renal disease Has cirrhosis anemia GERD diverticulitis migraines restless leg syndrome she took 100 potassium tablets over 99 mg each 25 olanzapine tablets that were 5 mg each and 5 trazodone tablets which were 100 mg each. Patient is awake and alert perhaps slightly tired but not somnolent maintaining her airway conversant and cooperative she did specifically explicitly state she took this because she wanted to go over with her 1 at home her kill herself. Patient is getting a chest x-ray KUB EKG shows the beginning of the QRS 1 QT interval prolonged at 510 ms. Patient with 2 mg of IV push magnesium for this. Patient will also get oral charcoal. Patient will get screening labs. Patient will be admitted possibly to the ICU for evaluation and medical clearance and then she will follow-up when been medically cleared for mental health. Providing 45 minutes critical care service for this patient, patient is also getting albuterol treatment against presumptive hyperkalemia. Admission disposition workup pending Pain Scale: 0 - Related Data Home Medications Medication Instructions Recorded Confirmed Bacitracin 1 appl TP DAILY 07/28/17 08/07/17 Gabapentin [Neurontin] 1,200 mg PO TID 07/28/17 08/07/17 Guaifenesin [Mucinex] 600 mg PO BID 07/28/17 08/07/17 Loratadine [Claritin] 10 mg PO DAILY 07/28/17 08/07/17 Meclizine HCl [Verticalm] 25 mg PO TID 07/28/17 08/07/17 Metoprolol [Lopressor] 50 mg PO DAILY 07/28/17 08/07/17 Omeprazole [PriLOSEC] 40 mg PO DAILY 07/28/17 08/07/17 Potassium Chloride [K-Tab ER] 20 meq PO TID 07/28/17 08/07/17 Ranitidine HCl [Zantac] 300 mg PO DAILY 07/28/17 08/07/17 Spironolactone [Aldactone] 50 mg PO BID 07/28/17 08/07/17 Previous Rx's Medication Instructions Recorded Albuterol Sulfate [Albuterol 2 puff IH [id number] PRN inhaler 08/12/17 Inhaler] Citalopram [CeleXA] 40 mg PO DAILY tablet 08/12/17 Insulin LISPRO [HumaLOG] 0 units SQ HS vial 08/12/17 Insulin LISPRO [HumaLOG] 0 units SQ TIDAC vial 08/12/17 Nicotine Gum [Nicorette gum] 4 mg BC Q2H PRN 30 Days #90 gum 08/12/17 Venlafaxine XR (24 HR) [Effexor XR] 75 mg PO DAILY 30 Days #30 08/12/17 cap.er.24h Allergies Allergy/AdvReac Type Severity Reaction Status Date / Time acetaminophen [From Percocet] Allergy Weakness Verified 08/02/17 12:11 carisoprodol [From Soma] Allergy Anaphylaxis Verified 07/28/17 14:38 codeine Allergy Anaphylaxis Verified 07/28/17 14:38 Erythromycin Base Allergy Anaphylaxis Verified 07/28/17 14:38 [From Erythrocin] lisinopril Allergy Anaphylaxis Verified 07/28/17 14:38 meperidine [From Demerol] Allergy Anaphylaxis Verified 07/28/17 14:38 olanzapine [From Zyprexa] Allergy Anaphylaxis Verified 07/28/17 14:38 Oxycodone [From Percocet] Allergy Anaphylaxis Verified 07/28/17 14:38 Penicillins Allergy Anaphylaxis Verified 07/28/17 14:38 Tetracyclines Allergy Anaphylaxis Verified 07/28/17 14:38 Past Medical History - Past Medical History Medical history: Reports: cirrhosis, diabetes, GERD, liver disease, migraine, renal disease Surgical history: Reports: cholecystectomy Psychiatric history: Reports: bipolar, depression, PTSD, prior suicide attempt - Social History Smoking Status: Current every day smoker Smokeless Tobacco Status: No Alcohol use: Reports: rarely Drug use: Reports: opiates Physical Exam - General Limitations: no limitations Course Vital Signs Temperature 97.9 F 01/23/18 14:02 Pulse Rate 73 01/23/18 14:02 Respiratory Rate 16 01/23/18 14:02 Blood Pressure 120/77 01/23/18 14:02 O2 Sat by Pulse Oximetry 98 01/23/18 14:02 Temperature 97.9 F 01/23/18 14:02 Pulse Rate 77 01/23/18 14:19 Respiratory Rate 26 01/23/18 14:19 Blood Pressure 123/71 01/23/18 14:19 O2 Sat by Pulse Oximetry 98 01/23/18 14:19 Oxygen Delivery Oxygen Delivery Aerosol Mask Medical Decision Making - Lab Data Result diagrams: 01/23/18 14:08 Lab Results 01/23/18 Range/Units 14:08 WBC 8.5 (4.3-11.1) K/mcL RBC 5.26 H (3.82-4.97) M/mcL Hgb 15.1 (11.5-15.4) g/dL Hct 44.7 (35.3-44.9) % MCV 85.0 (83.0-100.0) fL MCH 28.7 (28.0-33.3) pg MCHC 33.8 (31.6-35.5) g/dL RDW 15.4 H (11.5-14.5) % Plt Count 238 (140-400) K/mcL MPV 9.9 (9.4-12.4) fL Immature Gran % 2.5 (0-4) % Seg Neutrophils % 59.1 % Lymphocytes % 28.5 % Monocytes % 7.6 % Eosinophils % 1.2 % Basophils % 1.1 % Neutrophils # 5.1 (1.6-8.9) K/mcL Lymphocytes # 2.4 (0.6-4.6) K/mcL Monocytes # 0.7 (0.0-1.3) K/mcL Eosinophils # 0.1 (0.0-0.6) K/mcL Basophils # 0.1 (0.0-0.2) K/mcL
[2018-01-23 14:40] LABS: Bilirubin,Urine Negative (Negative); Blood,Urine Negative (Negative); Clarity,Urine Clear (Clear); Color,Urine Yellow (Yellow); Glucose,Urine (UA) >=1000 mg/dL (Normal); Ketones,Urine Negative (Negative); Leukocyte Esterase,Urine Negative (Negative); Nitrite,Urine Negative (Negative); Protein,Urine Negative (Neg-Trace); Specific Gravity,Urine 1.019 (1.010-1.025); Urobilinogen,Urine Normal (Normal)
[2018-01-23 14:48] LABS: Acetaminophen < 10 mcg/mL (10-20); Alanine Aminotransferase 21 Units/L (7-52); Albumin 3.7 g/dL (3.5-5.7); Albumin/Globulin Ratio 1.5 (1.1-2.2); Alkaline Phosphatase 150 Units/L (34-104); Aspartate Amino Transferase 11 Units/L (13-39); BUN/Creatinine Ratio 26 (6-26); Bilirubin,Direct 0.1 mg/dL (0.0-0.2); Bilirubin,Indirect 0.3 mg/dL (0.0-1.2); Bilirubin,Total 0.4 mg/dL (0.3-1.0); Blood Urea Nitrogen 18 mg/dL (6-20); Calcium 8.7 mg/dL (8.6-10.3); Carbon Dioxide 24 mEq/L (23-29); Chloride 105 mEq/L (98-107); Ethanol < 10 mg/dL (Less than 10); Globulin 2.4 g/dL (2.4-3.5); Glucose 304 mg/dL (70-105); Osmolality,Calculated 295 (280-300); Salicylate < 2.5 mg/dL (15.0-30.0); Sodium 136 mEq/L (136-145); Total Protein 6.1 g/dL (6.4-8.9); eGFR For Non-African Americans > 60 (> 60)
[2018-01-23 14:50] LABS: Amphetamine Screen,Urine Negative ng/mL (Cutoff=1000); Barbiturate Screen,Urine Negative ng/mL (Cutoff=200); Benzodiazepines Screen,Urine Negative ng/mL (Cutoff=200); Cannabinoid Screen,Urine Negative ng/mL (Cutoff = 50); Cocaine Screen,Urine Negative ng/mL (Cutoff= 300); Opiate Screen,Urine Negative ng/mL (Cutoff=300); Phencyclidine Screen,Urine Negative ng/mL (Cutoff=25)
[2018-01-23] MEDS ORDERED: *HR* Magnesium Sulfate 2 GM/50 ML PIGGYBACK IVPB ONE (15:12)
--- NOTE | 2018-01-23 16:01 | Pulmonology History & Physical ---
Date of Encounter: 01/24/18 Time of Encounter: 15:25 Assessment and Plan (1) Drug overdose Current visit: Yes Status: Acute Patient has taken significant life threatening dose of multiple medication which can be deadly due to the amount of the medications that she took and the poison control has been contacted already by the emergency room physician and the patient was treated appropriately according to poison control recommendations. Clearly patient needs to be monitored in the intensive care unit especially with the QT interval prolongation on her ECG. Critical care performed: Time is exclusive of separately billable procedures. Time includes: direct patient care, patient reassessment, coordination of patient care, interpretation of data (laboratory data, radiology data, and respiratory data), review of patient's medical records, medical consultation and documentation of patient care. Procedures excluded from critical care time: 35 minutes Qualifiers: Encounter type: initial encounter Injury intent: intentional self-harm Qualified Code(s): T50.902A - Poisoning by unspecified drugs, medicaments and biological substances, intentional self-harm, initial encounter (2) Suicide attempt Current visit: Yes Status: Acute She has tried to kill herself in the past and she has been seen by psychiatrist. She will be monitored with a sitter and psych consult. (3) Suicide attempt by multiple drug overdose Current visit: No Status: Acute At this time and be supportive care and I am hoping there will be no major co mplications. Follow-up on the labs and EKG. Qualifiers: Encounter type: initial encounter Qualified Code(s): T50.902A - Poisoning by unspecified drugs, medicaments and biological substances, intentional self- harm, initial encounter (4) ELISSA (obstructive sleep apnea) Current visit: Yes Status: Chronic This is to be addressed as outpatient History of Present Illness Chief complaint: Suicidal attempt and overdose HPI: Ms. Jacinto is a 47 year old female with significant past medical history of multiple attempts of suicide and she was in the ICU at [facility] previously for suicide by ingestion significant amount of medications. Patient stated that she wanted to kill herself and she took multiple doses of her on medications as well as [id number]. She claims she took 100 tablets of potassium pills 99 mEq and 25 pills of 5 mg of Zyprexa as well as trazodone 100 mg 85 pills. Surprisingly patient is not feeling Anything different and she stated she was scared and she called the ambulance and patient was brought to the emergency room. I was called by the emergency room physician to evaluate the patient and she was seen and evaluated in the emergency room. Patient rec ently had thyroid biopsy. She denies any symptoms at this time. He has no chest pain and denies any syncope or presyncopal episodes. Patient stated she has diagnosis of obstructive sleep apnea but she is not on treatment. Past Med Surg Social Fam HX - Past Medical History Medical history: cirrhosis, diabetes, GERD, liver disease, migraine, renal disease Additional medical history: pancreatitis, anemia, RLS Psychiatric history: bipolar, depression, PTSD, prior suicide attempt - Past Surgical History Surgical History: cholecystectomy Additional surgical history: deviated septum. Heart catheter ablation for SVT - Social History Smoking Status: Current every day smoker Smokeless Tobacco Status: No Alcohol use: rarely Drug use: opiates - Family History Father Hx Family Cancer: Yes (lung) Medications and Allergies RX: Gabapentin [Neurontin] 600 mg PO TID 07/28/17 [History] RX: Loratadine [Claritin] 10 mg PO DAILY 07/28/17 [History] RX: Meclizine HCl [Verticalm] 25 mg PO TID 07/28/17 [History] RX: Metoprolol [Lopressor] 50 mg PO DAILY 07/28/17 [History] RX: Omeprazole [PriLOSEC] 40 mg PO DAILY 07/28/17 [History] RX: Potassium Chloride [K-Tab ER] 20 meq PO TID 07/28/17 [History] RX: Ranitidine HCl [Zantac] 300 mg PO DAILY 07/28/17 [History] RX: Spironolactone [Aldactone] 50 mg PO BID 07/28/17 [History] RX: Albuterol Sulfate [Albuterol Inhaler] 2 puff IH [id number] PRN inhaler 08/12/17 [Rx] Aspirin [Adult Aspirin] 81 mg PO DAILY 01/23/18 [History] Lurasidone HCl [Latuda] 60 mg PO DAILY 01/23/18 [History] Ropinirole HCl [Requip] 0.5 mg PO QPM 01/23/18 [History] Venlafaxine XR (24 HR) [Effexor XR] 150 mg PO DAILY 01/23/18 [History] hydrOXYzine pamoate [HydrOXYzine Pamoate] 50 - 100 mg PO TID 01/23/18 [History] Allergy/AdvReac Type Severity Reaction Status Date / Time acetaminophen [From Percocet] Allergy Weakness Verified 08/02/17 12:11 carisoprodol [From Soma] Allergy Anaphylaxis Verified 07/28/17 14:38 codeine Allergy Anaphylaxis Verified 07/28/17 14:38 Erythromycin Base Allergy Anaphylaxis Verified 07/28/17 14:38 [From Erythrocin] lisinopril Allergy Anaphylaxis Verified 07/28/17 14:38 meperidine [From Demerol] Allergy Anaphylaxis Verified 07/28/17 14:38 olanzapine [From Zyprexa] Allergy Anaphylaxis Verified 07/28/17 14:38 Oxycodone [From Percocet] Allergy Anaphylaxis Verified 07/28/17 14:38 Penicillins Allergy Anaphylaxis Verified 07/28/17 14:38 Tetracyclines Allergy Anaphylaxis Verified 07/28/17 14:38 All Systems: The remainder of the systems were reviewed and are negative Physical Examination Vital Signs: Vital Signs, Last 4 Hours Temp Pulse Resp BP Pulse Ox 01/23/18 15:35 81 20 119/89 99 01/23/18 15:26 83 26 142/94 96 01/23/18 15:06 83 26 139/84 99 01/23/18 14:59 90 24 136/75 96 01/23/18 14:52 90 23 149/87 97 01/23/18 14:43 81 24 138/70 96 01/23/18 14:19 77 26 123/71 98 01/23/18 14:10 98 01/23/18 14:02 97.9 F 73 16 120/77 98 General: Patient is in no acute distress. HEENT: Normocephalic atraumatic, pupils are equal round and reactive to light and accommodation, anicteric sclera, nares is patent, mucous membranes moist, no JVD, trachea is midline. On the right side of her neck Cardiovascular: Normal sinus rhythm, S1 and S2 audible, no murmur or rubs Respiratory: Clear to auscultation bilaterally. No acute distress. No wheezing. Patient not using accessory muscles. Abdomen: Soft, nontender, nondistended, positive bowel sounds in all 4 quadrants Extremities: Warm, dry, trace lower extremity edema. Normal capillary refill. Neuro: Alert and oriented and follows commands. Grossly no neuro deficits. Skin: Warm to touch : No obvious abnormalities. Psych: Normal Results - Laboratory Findings CBC and BMP: 01/24/18 06:12 01/24/18 06:12 Abnormal lab findings: Abnormal lab results RBC 5.26 M/mcL (3.82-4.97) H 01/23/18 14:08 RDW 15.4 % (11.5-14.5) H 01/23/18 14:08 Glucose 304 mg/dL (70-105) H 01/23/18 14:08 Lactic Acid 2.9 mmol/L (0.5-2.2) H 01/23/18 14:08 AST 11 Units/L (13-39) L 01/23/18 14:08 Alkaline Phosphatase 150 Units/L (34-104) H 01/23/18 14:08 Serum Total Protein 6.1 g/dL (6.4-8.9) L 01/23/18 14:08 Urine Glucose (UA) >=1000 mg/dL (Normal) H 01/23/18 14:33 Salicylates < 2.5 mg/dL (15.0-30.0) L 01/23/18 14:08 Acetaminophen < 10 mcg/mL (10-20) L 01/23/18 14:08
[2018-01-23] MEDS ORDERED: Naloxone 0.4 MG/ML INJ IVP PRN (16:09)
[2018-01-23] MEDS ORDERED: Dextrose Gel 15 GM/37.5 ML TUBE PO PRN ×2 (16:14)
[2018-01-23] MEDS ORDERED: *HR* Dextrose 50 % in Water (Syg) 50 ML SYRINGE IVP PRN (16:14)
[2018-01-23] MEDS ORDERED: D5% in Water 1,000 ML IVC PRN (16:14)
--- NOTE | 2018-01-23 16:48 | Electrocardiograph Report ---
[place] [employer] 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
[2018-01-23] MEDS: 0.9 % Sodium Chloride 1,000 ML IVC SCH (17:50)
[2018-01-23] MEDS: Insulin LISPRO 300 UNITS/3 ML VIAL SQ SCH (17:51)
[2018-01-23 18:18] LABS: BUN/Creatinine Ratio 23 (6-26); Blood Urea Nitrogen 15 mg/dL (6-20); Calcium 8.8 mg/dL (8.6-10.3); Carbon Dioxide 23 mEq/L (23-29); Chloride 108 mEq/L (98-107); Glucose 261 mg/dL (70-105); Osmolality,Calculated 296 (280-300); Potassium 4.6 mEq/L (3.5-5.1); Sodium 138 mEq/L (136-145); eGFR For Non-African Americans > 60 (> 60)
[2018-01-23] MEDS: *HR* Heparin 5,000 UNIT/ML VIAL SQ SCH (21:44)
[2018-01-24] MEDS: 0.9 % Sodium Chloride 1,000 ML IVC SCH (02:14)
[2018-01-24] MEDS: Insulin LISPRO 300 UNITS/3 ML VIAL SQ SCH ×3 (02:15→17:20)
[2018-01-24 03:30] LABS: BUN/Creatinine Ratio 14 (6-26); Blood Urea Nitrogen 10 mg/dL (6-20); Calcium 8.6 mg/dL (8.6-10.3); Carbon Dioxide 24 mEq/L (23-29); Chloride 109 mEq/L (98-107); Glucose 266 mg/dL (70-105); Osmolality,Calculated 300 (280-300); Potassium 4.7 mEq/L (3.5-5.1); Sodium 141 mEq/L (136-145); eGFR For Non-African Americans > 60 (> 60)
[2018-01-24] MEDS: *HR* Heparin 5,000 UNIT/ML VIAL SQ SCH ×3 (05:58→21:00)
[2018-01-24 06:40] LABS: Basophils # 0.1 K/mcL (0.0-0.2); Basophils % 0.7 %; Eosinophils # 0.1 K/mcL (0.0-0.6); Eosinophils % 0.8 %; Hematocrit 44.8 % (35.3-44.9); Hemoglobin 14.8 g/dL (11.5-15.4); Immature Granulocytes % 0.7 % (0-4); Lymphocytes # 2.7 K/mcL (0.6-4.6); Lymphocytes % 27.8 %; Mean Corpuscular Hemoglobin 28.5 pg (28.0-33.3); Mean Corpuscular Volume 86.2 fL (83.0-100.0); Mean Platelet Volume 9.9 fL (9.4-12.4); Monocytes # 0.6 K/mcL (0.0-1.3); Monocytes % 5.7 %; Neutrophils # 6.3 K/mcL (1.6-8.9); Platelet Count 225 K/mcL (140-400); Red Cell Distribution Width 15.8 % (11.5-14.5); Segmented Neutrophils % 64.3 %
[2018-01-24 06:59] LABS: Alanine Aminotransferase 18 Units/L (7-52); Albumin 3.4 g/dL (3.5-5.7); Albumin/Globulin Ratio 1.5 (1.1-2.2); Alkaline Phosphatase 120 Units/L (34-104); Aspartate Amino Transferase 12 Units/L (13-39); BUN/Creatinine Ratio 16 (6-26); Bilirubin,Total 0.5 mg/dL (0.3-1.0); Blood Urea Nitrogen 10 mg/dL (6-20); Calcium 8.8 mg/dL (8.6-10.3); Carbon Dioxide 24 mEq/L (23-29); Chloride 111 mEq/L (98-107); Globulin 2.2 g/dL (2.4-3.5); Glucose 103 mg/dL (70-105); Magnesium 2.1 mg/dL (1.6-2.6); Osmolality,Calculated 295 (280-300); Phosphorous 3.3 mg/dL (2.7-4.5); Potassium 4.3 mEq/L (3.5-5.1); Sodium 143 mEq/L (136-145); Total Protein 5.6 g/dL (6.4-8.9); eGFR For Non-African Americans > 60 (> 60)
[2018-01-24] MEDS ORDERED: D5% in Water 1,000 ML IVC PRN (09:08)
[2018-01-24] MEDS ORDERED: Dextrose Gel 15 GM/37.5 ML TUBE PO PRN ×2 (09:08)
[2018-01-24] MEDS ORDERED: *HR* Dextrose 50 % in Water (Syg) 50 ML SYRINGE IVP PRN (09:08)
[2018-01-24] MEDS ORDERED: 0.9 % Sodium Chloride 1,000 ML IVC SCH (09:08)
[2018-01-24] MEDS ORDERED: Naloxone 0.4 MG/ML INJ IVP PRN (09:08)
--- NOTE | 2018-01-24 09:56 | Pulmonology Progress Note ---
<EllieKenya palma M - Last Filed: 01/24/18 10:12> Date of Encounter: 01/24/18 Assessment and Plan (1) Drug overdose Current Visit: Yes Status: Acute Qualifiers: Encounter type: initial encounter Injury intent: intentional self-harm Qualified Code(s): T50.902A - Poisoning by unspecified drugs, medicaments and biological substances, intentional self-harm, initial encounter (2) Suicide attempt Current Visit: Yes Status: Acute (3) Suicide attempt by multiple drug overdose Current Visit: No Status: Acute Qualifiers: Encounter type: initial encounter Qualified Code(s): T50.902A - Poisoning by unspecified drugs, medicaments and biological substances, intentional self- harm, initial encounter (4) ELISSA (obstructive sleep apnea) Current Visit: Yes Status: Chronic Objective PUL Vital signs: Last Vital Signs Temp 98.0 F 01/24/18 08:00 Pulse 85 01/24/18 08:01 Resp 18 01/24/18 08:00 BP 140/85 01/24/18 08:00 Pulse Ox 94 01/24/18 08:00 Results - Laboratory Findings CBC and BMP: 01/24/18 06:12 01/24/18 06:12 Abnormal lab findings: Abnormal lab results RBC 5.20 M/mcL (3.82-4.97) H 01/24/18 06:12 RDW 15.8 % (11.5-14.5) H 01/24/18 06:12 Chloride 111 mEq/L (98-107) H 01/24/18 06:12 POC Glucose 260 mg/dL (70-99) H 01/23/18 17:16 Lactic Acid 2.9 mmol/L (0.5-2.2) H 01/23/18 14:08 AST 12 Units/L (13-39) L 01/24/18 06:12 Alkaline Phosphatase 120 Units/L (34-104) H 01/24/18 06:12 Serum Total Protein 5.6 g/dL (6.4-8.9) L 01/24/18 06:12 Albumin 3.4 g/dL (3.5-5.7) L 01/24/18 06:12 Globulin 2.2 g/dL (2.4-3.5) L 01/24/18 06:12 Urine Glucose (UA) >=1000 mg/dL (Normal) H 01/23/18 14:33 Salicylates < 2.5 mg/dL (15.0-30.0) L 01/23/18 14:08 Acetaminophen < 10 mcg/mL (10-20) L 01/23/18 14:08 - Clinical Findings Intake & Output: Intake & Output 01/23/18 01/24/18 01/24/18 23:59 07:59 15:59 Intake Total 1000 / 1000 Output Total 2500 / 2500 Balance -2500 / -2500 1000 / 1000 Weight 138 kg Consult Discharge Plan - Plan Referrals: NONE,PCP [Primary Care Provider] - - Attending Attestation I examined this patient and my medical decision-making was reviewed with the Resident Physician. I agree with the documented findings, disposition and treatment plan as described except to the extent set forth below. Patient seen and examined. Labs, radiology, chart personally reviewed. Agree with resident's history and physical, assessment, plan with following comments: [employer]: Patient follows commands, Pulmonary: Acceptable oxygenation and ventilation Cardiovascular: stable , however ECG remain shows evidence of slight prolongation of QT interval, however there is no arrhythmias and electrolytes mainly potassium remained stable. Checking with poison control for more recommendations GI: Nutrition per dietary and GI prophylaxis per routine. Resume diet Heme: DVT prophylaxis per routine Renal; urine out put and renal funtion reviewed Endorcine: blood glucose is monitored Lines: all lines checked and no evidence of infections Skin: skin care to prevent pressure ulcers per nursing routine care Psych: Psych evaluation. Patient stable to be transferred to telemetry. <Payam Buck - Last Filed: 01/24/18 15:53> Date of Encounter: 01/24/18 Time of Encounter: 09:56 Assessment and Plan (1) Drug overdose Current Visit: Yes Status: Acute Took a significant life threatening dose of multiple medications Poison control has been contacted, and the patient was treated appropriately according to poison control recommendations Pt continued to have prolonged QT interval with no further arrhythmias Potassium improved at 4.2 Pysch has been consulted for multiple suicidal attempts prior to this one Pt is A&Ox3 with no acute complaints Stable to transfer out of ICU. Spoke with hospitalist and pt was accepted by Dr. Stoner. Qualifiers: Encounter type: initial encounter Injury intent: intentional self-harm Qualified Code(s): T50.902A - Poisoning by unspecified drugs, medicaments and biological substances, intentional self-harm, initial encounter (2) Suicide attempt Current Visit: Yes Status: Acute plan as above Psych consulted (3) Suicide attempt by multiple drug overdose Current Visit: No Status: Acute plan as above Qualifiers: Encounter type: initial encounter Qualified Code(s): T50.902A - Poisoning by unspecified drugs, medicaments and biological substances, intentional self- harm, initial encounter (4) ELISSA (obstructive sleep apnea) Current Visit: Yes Status: Chronic Chronic issue to be addressed in outpatient setting (5) DVT prophylaxis Current Visit: No Status: Acute SQ Heparin Subjective Principal diagnosis: OD/SI Interval history: Pt seen and examined at bedside. Resting comfortably in bed with no new or acute complaints. Objective PUL Vital signs: Last Vital Signs Temp 98.0 F 01/24/18 08:00 Pulse 85 01/24/18 08:01 Resp 18 01/24/18 08:00 BP 140/85 01/24/18 08:00 Pulse Ox 94 01/24/18 08:00 General appearance: no acute distress, alert Eyes: nonicteric ENT: oropharynx moist Neck: supple, no JVD Effort: normal Auscultation: bilateral: clear Percussion: bilateral: not dull Tactile fremitus: bilateral: normal Cardiovascular: regular rate and rhythm Gastrointestinal: soft, non-tender, non-distended Integumentary: normal Extremities: no cyanosis, no clubbing, pink and warm, pulses normal Musculoskeletal: no deformities normal mental status, non-focal exam, pupils equal and round, motor strength normal and symmetric depressed Results - Laboratory Findings CBC and BMP: 01/24/18 06:12 01/24/18 13:45 Abnormal lab findings: Abnormal lab results RBC 5.20 M/mcL (3.82-4.97) H 01/24/18 06:12 RDW 15.8 % (11.5-14.5) H 01/24/18 06:12 Chloride 111 mEq/L (98-107) H 01/24/18 06:12 POC Glucose 260 mg/dL (70-99) H 01/23/18 17:16 Lactic Acid 2.9 mmol/L (0.5-2.2) H 01/23/18 14:08 AST 12 Units/L (13-39) L 01/24/18 06:12 Alkaline Phosphatase 120 Units/L (34-104) H 01/24/18 06:12 Serum Total Protein 5.6 g/dL (6.4-8.9) L 01/24/18 06:12 Albumin 3.4 g/dL (3.5-5.7) L 01/24/18 06:12 Globulin 2.2 g/dL (2.4-3.5) L 01/24/18 06:12 Urine Glucose (UA) >=1000 mg/dL (Normal) H 01/23/18 14:33 Salicylates < 2.5 mg/dL (15.0-30.0) L 01/23/18 14:08 Acetaminophen < 10 mcg/mL (10-20) L 01/23/18 14:08 - Clinical Findings Intake & Output: Intake & Output 01/23/18 01/24/18 01/24/18 23:59 07:59 15:59 Intake Total 1000 / 1000 Output Total 2500 / 2500 Balance -2500 / -2500 1000 / 1000 Weight 138 kg
[2018-01-24] MEDS ORDERED: Insulin LISPRO 300 UNITS/3 ML VIAL SQ SCH ×2 (12:00→21:00)
[2018-01-24 14:16] LABS: BUN/Creatinine Ratio 17 (6-26); Blood Urea Nitrogen 11 mg/dL (6-20); Calcium 8.9 mg/dL (8.6-10.3); Carbon Dioxide 23 mEq/L (23-29); Chloride 109 mEq/L (98-107); Glucose 162 mg/dL (70-105); Osmolality,Calculated 295 (280-300); Potassium 4.2 mEq/L (3.5-5.1); Sodium 141 mEq/L (136-145); eGFR For Non-African Americans > 60 (> 60)
[2018-01-25 04:47] LABS: Basophils # 0.1 K/mcL (0.0-0.2); Basophils % 0.8 %; Eosinophils # 0.1 K/mcL (0.0-0.6); Eosinophils % 1.6 %; Hematocrit 42.6 % (35.3-44.9); Hemoglobin 13.8 g/dL (11.5-15.4); Immature Granulocytes % 0.8 % (0-4); Lymphocytes # 2.4 K/mcL (0.6-4.6); Lymphocytes % 29.4 %; Mean Corpuscular HGB Conc 32.4 g/dL (31.6-35.5); Mean Corpuscular Hemoglobin 28.2 pg (28.0-33.3); Mean Corpuscular Volume 86.9 fL (83.0-100.0); Mean Platelet Volume 10.2 fL (9.4-12.4); Monocytes # 0.5 K/mcL (0.0-1.3); Monocytes % 6.3 %; Platelet Count 215 K/mcL (140-400); Red Cell Distribution Width 15.9 % (11.5-14.5); Segmented Neutrophils % 61.1 %
[2018-01-25] MEDS: *HR* Heparin 5,000 UNIT/ML VIAL SQ SCH (05:00)
[2018-01-25 05:04] LABS: Alanine Aminotransferase 18 Units/L (7-52); Albumin 3.4 g/dL (3.5-5.7); Albumin/Globulin Ratio 1.5 (1.1-2.2); Alkaline Phosphatase 129 Units/L (34-104); Aspartate Amino Transferase 11 Units/L (13-39); BUN/Creatinine Ratio 19 (6-26); Bilirubin,Total 0.6 mg/dL (0.3-1.0); Blood Urea Nitrogen 15 mg/dL (6-20); Carbon Dioxide 20 mEq/L (23-29); Chloride 109 mEq/L (98-107); Globulin 2.2 g/dL (2.4-3.5); Glucose 146 mg/dL (70-105); Osmolality,Calculated 293 (280-300); Potassium 3.8 mEq/L (3.5-5.1); Sodium 140 mEq/L (136-145); Total Protein 5.6 g/dL (6.4-8.9); eGFR For Non-African Americans > 60 (> 60)
[2018-01-25] MEDS: Insulin LISPRO 300 UNITS/3 ML VIAL SQ SCH ×2 (09:00→11:39)
--- NOTE | 2018-01-25 09:58 | Internal Med Progress Note ---
Hospitalist Progress Note - Encounter Date of Encounter: 01/25/18 Time of Encounter: 09:58 - Exam Vitals: Temp Pulse Resp BP Pulse Ox 97.8 F 74 18 151/86 92 01/25/18 06:14 01/25/18 06:14 01/25/18 06:14 01/25/18 06:14 01/25/18 06:14 - Time Spent with Patient Total time spent is greater than 50% in coordination of care (as documented) at patient's floor/unit and/or counseling patient: Internal Medicine: Result - Labs CBC & Chem 7: 01/25/18 03:30 01/25/18 03:30 Labs: Short CBC 01/25/18 Range/Units 03:30 WBC 8.2 (4.3-11.1) K/mcL Hgb 13.8 (11.5-15.4) g/dL Hct 42.6 (35.3-44.9) % Plt Count 215 (140-400) K/mcL Neutrophils # 5.0 (1.6-8.9) K/mcL BMP 01/24/18 01/25/18 13:45 03:30 Sodium 141 140 Potassium 4.2 3.8 Chloride 109 H 109 H Carbon Dioxide 23 20 L BUN 11 15 Creatinine 0.66 0.77 Glucose 162 H 146 H Calcium 8.9 9.0 Liver Function 01/25/18 Range/Units 03:30 Total Bilirubin 0.6 (0.3-1.0) mg/dL AST 11 L (13-39) Units/L ALT 18 (7-52) Units/L Alkaline Phosphatase 129 H (34-104) Units/L Albumin 3.4 L (3.5-5.7) g/dL Consult Discharge Plan - Plan Referrals: NONE,PCP [Primary Care Provider] -
[2018-01-25 10:07] VITALS: BP 150/92
--- NOTE | 2018-01-25 10:25 | Consult Note ---
Date of Encounter: 01/25/18 Time of Encounter: 09:30 Assessment & Recommendation (1) Major depressive disorder, recurrent severe without psychotic features Current visit: Yes Status: Acute (2) Drug overdose Current visit: Yes Status: Acute Qualifiers: Encounter type: initial encounter Injury intent: intentional self-harm Qualified Code(s): T50.902A - Poisoning by unspecified drugs, medicaments and biological substances, intentional self-harm, initial encounter (3) Suicide attempt by multiple drug overdose Current visit: No Status: Acute Qualifiers: Encounter type: initial encounter Qualified Code(s): T50.902A - Poisoning by unspecified drugs, medicaments and biological substances, intentional self- harm, initial encounter (4) ELISSA (obstructive sleep apnea) Current visit: Yes Status: Chronic History of Present Illness Patient: known to practice within the last 3 years Requesting Physician: Diana Syed MD Reason for consult: I took an overdose, but if I had just a half a minute, I might not have. History of present illness: Ms. Jacinto is a 47 year old female CC: Diana Syed MD ID the patient is a 47-year-old white female. Chief complaint I had a half minute I would have not taken it. I took an overdose because life sucks and he wanted to make the pain go away. History of present illness. The patient has been treated for major depressive disorder recurrent. She is currently followed in an integrated services where she sees Stephy and nurse practitioner and Ara a counselor. The patient was on Effexor, Vistaril and Latuda, . These medicines were locked up and not immediately available to her. The patient had an argument. She became upset at her . Her had taken her back into the home. But her had been unfaithful in the past and wanted to continue friendships with individuals she had been unfaithful with. The patient notes that she has jealousy and that she became enraged thought that life was not worth living. Instead of going for her own prescribed medicines she went for the trazodone that was written by her jewelry finisher for her dog, she went for an old bottle of Zyprexa that was still sitting around but she was not pres cribed recently. And she took [id number] potassium. The patient tells me that it been 179 days since her last episode of suicide in the reader is referred to the discharge summary from the 2018 hospitalization. Past psychiatric history reveals the patient's been treated for major depression. She had impulsive overdoses. 3 months ago her left her and since then has come back. The patient notes increased jealousy feelings stocking the , getting in fights with the , being suspicious of the 's activities. When the announced that she did not want to change her activities this made the patient enraged. Past medical history: No recent surgeries illnesses the patient has sleep apnea she has not used CPAP for years she has had sinus surgery and it makes difficult to wear the CPAP mask the reader is referred to the list of medical problems. Allergies are listed above with no changes. Medicines are listed on the chart. Family history: Mother had psychiatric illness and her dad had an alcohol drug problem he attempted suicide 3 or 4 times. The brother had an alcohol drug problem. Social history. The patient was raised in [place] she went to high school she worked in [employer] later and [email or web address] later in [employer] she is not been working she has no kids. In 2010 she was denied disability and reports no other source of income Past Med Surg Social Fam HX - Past Medical History Source: patient, old records reviewed Medical history: cirrhosis, diabetes, GERD, liver disease, migraine, renal disease - Past Psychiatric History Psychiatric history: Reports: depression, previous psychiatric hospitalization Family psychiatric history: Yes Family History of Suicide: Attempted - Past Surgical History Surgical History: cholecystectomy - Social History Smoking Status: Current every day smoker Smokeless Tobacco Status: No Alcohol use: rarely Drug use: opiates Occupational status: unemployed Current living situation: Home Activity Level: Independent ambulation Recent Out of Country Travel Within the Last 8 Weeks: No Exposure or Possible Exposure to Illness During Travel: No - Family History Father Living Status: Cause of : lung CA Hx Family Cancer: Yes (lung) Hx Family Psychosocial Disorders: Yes Medications & Allergies Gabapentin [Neurontin] 600 mg PO TID 07/28/17 [History] Loratadine [Claritin] 10 mg PO DAILY 07/28/17 [History] Meclizine HCl [Verticalm] 25 mg PO TID 07/28/17 [History] Metoprolol [Lopressor] 50 mg PO DAILY 07/28/17 [History] Omeprazole [PriLOSEC] 40 mg PO DAILY 07/28/17 [History] Potassium Chloride [K-Tab ER] 20 meq PO TID 07/28/17 [History] Ranitidine HCl [Zantac] 300 mg PO DAILY 07/28/17 [History] Spironolactone [Aldactone] 50 mg PO BID 07/28/17 [History] Albuterol Sulfate [Albuterol Inhaler] 2 puff IH [id number] PRN inhaler 08/12/17 [Rx] Aspirin [Adult Aspirin] 81 mg PO DAILY 01/23/18 [History] Lurasidone HCl [Latuda] 60 mg PO DAILY 01/23/18 [History] Ropinirole HCl [Requip] 0.5 mg PO QPM 01/23/18 [History] Venlafaxine XR (24 HR) [Effexor XR] 150 mg PO DAILY 01/23/18 [History] hydrOXYzine pamoate [HydrOXYzine Pamoate] 50 - 100 mg PO TID 01/23/18 [History] Allergy/AdvReac Type Severity Reaction Status Date / Time acetaminophen [From Percocet] Allergy Weakness Verified 08/02/17 12:11 carisoprodol [From Soma] Allergy Anaphylaxis Verified 07/28/17 14:38 codeine Allergy Anaphylaxis Verified 07/28/17 14:38 Erythromycin Base Allergy Anaphylaxis Verified 07/28/17 14:38 [From Erythrocin] lisinopril Allergy Anaphylaxis Verified 07/28/17 14:38 meperidine [From Demerol] Allergy Anaphylaxis Verified 07/28/17 14:38 olanzapine [From Zyprexa] Allergy Anaphylaxis Verified 07/28/17 14:38 Oxycodone [From Percocet] Allergy Anaphylaxis Verified 07/28/17 14:38 Penicillins Allergy Anaphylaxis Verified 07/28/17 14:38 Tetracyclines Allergy Anaphylaxis Verified 07/28/17 14:38 Review of Systems Psychiatric: Reports: depression, anxiety, abnormal sleep pattern, suicidal ideation, difficulty concentrating Psychiatry Exam - Constitutional Vitals: Temp Pulse Resp BP Pulse Ox 97.8 F 84 17 150/92 92 01/25/18 10:07 01/25/18 10:07 01/25/18 10:07 01/25/18 10:07 01/25/18 10:07 General appearance: age & developmentally appropriate, malodorous, obese - Musculoskeletal Gait: slow Station: stiff Strength & Tone: mild weakness - Psychiatric Patient Orientation: Yes Person, Yes Time, Yes Place Level of alertness: Alert Behavior: calm, cooperative Psychomotor activity: Slowed Eye Contact: Minimal Contact Mood Description: Depressed Affect description: congruent with mood, tearful, dysphoric Speech Volume: Soft/Quiet Speech pattern: normal rate, normal rhythm, normal tone, fluent, spontaneous Language & Vocabulary: consistent with education Thought Process: Linear, Goal Oriented Thought Content: Yes Suicidal ideation, No Homicidal ideation, No Overt delusions, Yes Obsessive thoughts Perceptual Disturbances: No Auditory hallucinations, No Visual hallucinations Attention Span Ability: Capable of Sustained Attention Memory Description: Grossly Intact Patient Reliability: Reliable Historian Fund of knowledge: Yes abstraction ability, Yes aware of current events Intelligence Estimate: Average Judgment: Fair Insight: Partial Results - Labs Labs: Laboratory Last Values WBC 8.2 K/mcL (4.3-11.1) 01/25/18 03:30 RBC 4.90 M/mcL (3.82-4.97) 01/25/18 03:30 Hgb 13.8 g/dL (11.5-15.4) 01/25/18 03:30 Hct 42.6 % (35.3-44.9) 01/25/18 03:30 MCV 86.9 fL (83.0-100.0) 01/25/18 03:30 MCH 28.2 pg (28.0-33.3) 01/25/18 03:30 MCHC 32.4 g/dL (31.6-35.5) 01/25/18 03:30 RDW 15.9 % (11.5-14.5) H 01/25/18 03:30 Plt Count 215 K/mcL (140-400) 01/25/18 03:30 MPV 10.2 fL (9.4-12.4) 01/25/18 03:30 Immature Gran % 0.8 % (0-4) 01/25/18 03:30 Seg Neutrophils % 61.1 % 01/25/18 03:30 Lymphocytes % 29.4 % 01/25/18 03:30 Monocytes % 6.3 % 01/25/18 03:30 Eosinophils % 1.6 % 01/25/18 03:30 Basophils % 0.8 % 01/25/18 03:30 Neutrophils # 5.0 K/mcL (1.6-8.9) 01/25/18 03:30 Lymphocytes # 2.4 K/mcL (0.6-4.6) 01/25/18 03:30 Monocytes # 0.5 K/mcL (0.0-1.3) 01/25/18 03:30 Eosinophils # 0.1 K/mcL (0.0-0.6) 01/25/18 03:30 Basophils # 0.1 K/mcL (0.0-0.2) 01/25/18 03:30 Sodium 140 mEq/L (136-145) 01/25/18 03:30 Potassium 3.8 mEq/L (3.5-5.1) 01/25/18 03:30 Chloride 109 mEq/L (98-107) H 01/25/18 03:30 Carbon Dioxide 20 mEq/L (23-29) L 01/25/18 03:30 BUN 15 mg/dL (6-20) 01/25/18 03:30 Creatinine 0.77 mg/dL (0.60-1.20) 01/25/18 03:30 Est GFR ( Amer) > 60 (> 60) 01/25/18 03:30 Est GFR (Non-Af Amer) > 60 (> 60) 01/25/18 03:30 BUN/Creatinine Ratio 19 (6-26) 01/25/18 03:30 Glucose 146 mg/dL (70-105) H 01/25/18 03:30 POC Glucose 260 mg/dL (70-99) H 01/23/18 17:16 Calculated Osmolality 293 (280-300) 01/25/18 03:30 Lactic Acid 2.9 mmol/L (0.5-2.2) H 01/23/18 14:08 Calcium 9.0 mg/dL (8.6-10.3) 01/25/18 03:30 Phosphorus 3.3 mg/dL (2.7-4.5) 01/24/18 06:12 Magnesium 2.1 mg/dL (1.6-2.6) 01/24/18 06:12 Iron 89 mcg/dL (50-170) 01/23/18 18:12 Total Bilirubin 0.6 mg/dL (0.3-1.0) 01/25/18 03:30 Direct Bilirubin 0.1 mg/dL (0.0-0.2) 01/23/18 14:08 Indirect Bilirubin 0.3 mg/dL (0.0-1.2) 01/23/18 14:08 AST 11 Units/L (13-39) L 01/25/18 03:30 ALT 18 Units/L (7-52) 01/25/18 03:30 Alkaline Phosphatase 129 Units/L (34-104) H 01/25/18 03:30 Serum Total Protein 5.6 g/dL (6.4-8.9) L 01/25/18 03:30 Albumin 3.4 g/dL (3.5-5.7) L 01/25/18 03:30 Globulin 2.2 g/dL (2.4-3.5) L 01/25/18 03:30 Albumin/Globulin Ratio 1.5 (1.1-2.2) 01/25/18 03:30 Serum , Qual Negative (Negative) 01/23/18 18:12 Urine Color Yellow (Yellow) 01/23/18 14:33 Urine Clarity Clear (Clear) 01/23/18 14:33 Urine pH 5.0 pH Units (5.0-8.0) 01/23/18 14:33 Ur Specific Jerome 1.019 (1.010-1.025) 01/23/18 14:33 Urine Protein Negative mg/dL (Neg-Trace) 01/23/18 14:33 Urine Glucose (UA) >=1000 mg/dL (Normal) H 01/23/18 14:33 Urine Ketones Negative mg/dL (Negative) 01/23/18 14:33 Urine Blood Negative (Negative) 01/23/18 14:33 Urine Nitrite Negative (Negative) 01/23/18 14:33 Urine Bilirubin Negative (Negative) 01/23/18 14:33 Urine Urobilinogen Normal mg/dL (Normal) 01/23/18 14:33 Ur Leukocyte Esterase Negative (Negative) 01/23/18 14:33 Salicylates < 2.5 mg/dL (15.0-30.0) L 01/23/18 14:08 Urine Opiates Screen Negative ng/mL (Cyywpm=580) 01/23/18 14:33 Acetaminophen < 10 mcg/mL (10-20) L 01/23/18 14:08 Ur Barbiturates Screen Negative ng/mL (Kmiefy=899) 01/23/18 14:33 Ur Phencyclidine Scrn Negative ng/mL (Cutoff=25) 01/23/18 14:33 Ur Amphetamines Screen Negative ng/mL (Hbddyv=7284) 01/23/18 14:33 U Benzodiazepines Scrn Negative ng/mL (Uzycie=178) 01/23/18 14:33 Urine Cocaine Screen Negative ng/mL (Cutoff= 300) 01/23/18 14:33 U Marijuana (THC) Screen Negative ng/mL (Cutoff = 50) 01/23/18 14:33 Ur Drug Screen Interp See Below 01/23/18 14:33 Ethyl Alcohol < 10 mg/dL (Less than 10) 01/23/18 14:08 Consult Discharge Plan - Plan Referrals: NONE,PCP [Primary Care Provider] -
--- NOTE | 2018-01-25 12:51 | Discharge Summary ---
<Lizeth Barber - Last Filed: 01/25/18 14:09> - NOTES TO OUTPATIENT PROVIDER Notes to Outpatient Provider: Follow up with PCP in 1 week. Recheck BMP. Plan to discharge to Inpatient Pyschiatry for 72hour hold. Orders not resulted at time of discharge: Pending orders 01/23/18 17:57 ECG 12 lead ECG [ECG] Stat 01/25/18 11:38 EKG [ECG 12 lead ECG] [ECG] Stat Date of Encounter: 01/25/18 Time of Encounter: 12:49 - Discharge Diagnosis (1) Drug overdose Priority: Primary Status: Acute Qualifiers: Encounter type: initial encounter Injury intent: intentional self-harm Qualified Code(s): T50.902A - Poisoning by unspecified drugs, medicaments and biological substances, intentional self-harm, initial encounter (2) Suicide attempt Priority: Secondary Status: Acute (3) Suicide attempt by multiple drug overdose Priority: Secondary Status: Acute Qualifiers: Encounter type: initial encounter Qualified Code(s): T50.902A - Poisoning by unspecified drugs, medicaments and biological substances, intentional self- harm, initial encounter (4) ELISSA (obstructive sleep apnea) Priority: Secondary Status: Chronic Hospital course: This is a 47 y/o F with PMHx significant for multiple suicide attempts who presents after an attempt to kill herself by taking multiple doses of her own medications. Pt has Hx in [facility] ICU for previous suicide attempts via ingestion of significant amounts of medications. Pt claims she took 100 tablets of Potassium 99mEq and 25 pills of 5mg Zyprexa and 85 pills of Trazodone 100mg. After doing so, pt felt scared and called ambulance, and then patient was brought to emergency room. Denied any symptoms in the ER, aside from abdominal fullness. Denied headache, vision changes, chest pain, palpitations, SOB, abdominal pain, nausea, vomiting, diarrhea, presyncope, syncope. PMHx: Cirrhosis, Diabetes, GERD, Liver Disease, Migraine, Renal Disease Psych Hx: Bipolar Dx, MDD, PTSD, Hx of multiple suicide attempts PSHx: Cholecystectomy Social: Daily smoker; Opiates CXR: Mild Left Lung Base Atelectasis KUB: No acute abdominal abnormallity EKG: NSR, 70bpm, QTC = 513; No signs acute ST changes PO Charcoal was given, as well as 2mg Magnesium due to prolonged QTC = 513. Poison control center was contacted. Admitted to ICU due to prolonged QT interval and drug overdose for monitoring. In ICU, pt remained stable. Potassium levels also remained stable, and patient never found to be hyperkalemic. Reported no acute concerns, and was AOx3. Pt was stable to be discharged to hospital floor. Psych was consulted. Due to hx of major depressive disorder, chronic suicidal ideation, psychosocial stressors, recommend admittance to Inpatient Psych Unit 1A. Pt remains medically stable. Repeat EKG: NSR, no significant ST changes. QT = 431. Plan to discharge to 1A. Discharge discussed with: patient - Time Spent with Patient Total time spent providing and/or coordinating discharge services: Less than 30 minutes - Discharge Medications Home Medications: Gabapentin [Neurontin] 600 mg PO TID 07/28/17 [History] Loratadine [Claritin] 10 mg PO DAILY 07/28/17 [History] Meclizine HCl [Verticalm] 25 mg PO TID 07/28/17 [History] Metoprolol [Lopressor] 50 mg PO DAILY 07/28/17 [History] Omeprazole [PriLOSEC] 40 mg PO DAILY 07/28/17 [History] Potassium Chloride [K-Tab ER] 20 meq PO TID 07/28/17 [History] Ranitidine HCl [Zantac] 300 mg PO DAILY 07/28/17 [History] Spironolactone [Aldactone] 50 mg PO BID 07/28/17 [History] Albuterol Sulfate [Albuterol Inhaler] 2 puff IH X2OREAN PRN inhaler 08/12/17 [Rx] Aspirin [Adult Aspirin] 81 mg PO DAILY 01/23/18 [History] Lurasidone HCl [Latuda] 60 mg PO DAILY 01/23/18 [History] Ropinirole HCl [Requip] 0.5 mg PO QPM 01/23/18 [History] Venlafaxine XR (24 HR) [Effexor Xr] 150 mg PO DAILY 01/23/18 [History] hydrOXYzine pamoate [HydrOXYzine Pamoate] 50 - 100 mg PO TID 01/23/18 [History] Allergies/Adverse Reactions: Allergy/AdvReac Type Severity Reaction Status Date / Time acetaminophen [From Percocet] Allergy Weakness Verified 08/02/17 12:11 carisoprodol [From Soma] Allergy Anaphylaxis Verified 07/28/17 14:38 codeine Allergy Anaphylaxis Verified 07/28/17 14:38 Erythromycin Base Allergy Anaphylaxis Verified 07/28/17 14:38 [From Erythrocin] lisinopril Allergy Anaphylaxis Verified 07/28/17 14:38 meperidine [From Demerol] Allergy Anaphylaxis Verified 07/28/17 14:38 olanzapine [From Zyprexa] Allergy Anaphylaxis Verified 07/28/17 14:38 Oxycodone [From Percocet] Allergy Anaphylaxis Verified 07/28/17 14:38 Penicillins Allergy Anaphylaxis Verified 07/28/17 14:38 Tetracyclines Allergy Anaphylaxis Verified 07/28/17 14:38 Date of admission: 01/23/18 18:05 Primary care physician: PCP NONE Consults: 01/25/18 08:13 Consult to Psychiatry [CONS] Routine Consulting Provider: Psych[facility] [place] Reason consult: [place] slip on chart [place] Slip initiated date and time: 01/23/18 Time Notified: 08:14 Call Completed: Yes Discharging clinician: Lizeth Barber Anticipated date of discharge: 01/25/18 - Constitutional Vitals: Temp Pulse Resp BP Pulse Ox 97.8 F 84 17 150/92 92 01/25/18 10:07 01/25/18 10:07 01/25/18 10:07 01/25/18 10:07 01/25/18 10:07 Exam: GEN: AOx3; NAD; Pleasant; Resting at bedside HEENT: atraumatic, normocephalic; EOMI CARDIO: RRR, no murmurs, rubs, gallops RESP: CTAB, no wheezes, rales, rhonchi ABD: soft, non-tender, non-distended NEURO: CN 2-12 intact; No focal deficits; normal mood and affect at this time EXT: No swelling of LE b/l - Patient Status Disposition: Still a Patient Condition: Fair Functional capacity at discharge: independent ambulation Overall status at discharge: patient is progressing back to baseline - Discharge Instructions Follow Up With: NONE,PCP [Primary Care Provider] - - Diet and Activity Activity: increase activity as tolerated Diet: low fat, low cholesterol, low salt diet <Diana Syed - Last Filed: 01/25/18 15:36> Orders not resulted at time of discharge: Pending orders 01/23/18 17:57 ECG 12 lead ECG [ECG] Stat 01/25/18 11:38 EKG [ECG 12 lead ECG] [ECG] Stat Date of Encounter: 01/25/18 Time of Encounter: 09:35 Hospital course: Ms. Jacinto is a 47 year old female - Time Spent with Patient Total time spent providing and/or coordinating discharge services: Less than 30 minutes (10 min) Date of admission: 01/23/18 18:05 Primary care physician: PCP NONE Consults: 01/25/18 08:13 Consult to Psychiatry [CONS] Routine Consulting Provider: Psychiatry [facility] Reason consult: [place] slip on chart [place] Slip initiated date and time: 01/23/18 Time Notified: 08:14 Call Completed: Yes - Constitutional Vitals: Temp Pulse Resp BP Pulse Ox 97.8 F 84 17 150/92 92 01/25/18 10:07 01/25/18 10:07 01/25/18 10:07 01/25/18 10:07 01/25/18 10:07 General appearance: Present: cooperative, answers questions appropriately - Cardiovascular Cardiovascular exam: Present: RRR, +S1, +S2. Absent: diastolic murmur, gallop, rubs, systolic murmur - Extremities Exam Extremities exam: Present: warm, radial pulses palpable and symmetrical. Absent: calf tenderness, cyanotic, pedal edema - Psychiatric Psychiatric exam: Present: depressed, flat affect - Attending Attestation I saw evaluated and examined this patient and my medical decision-making was reviewed with the Resident Physician, Lizeth Barber. I agree with the documented findings, disposition and treatment plan as described except to any changes set forth below. We independently had [id number] contact with the patient. Patient with a history of depression, sleep apnea and prior suicide attempts was hospitalized here after taking multiple pills of potassium, Zyprexa and trazodone in an apparent suicide attempt. Patient was initially monitored in the ICU and closely followed per poison control recommendations. She received IV fluids, activated charcoal in the ER. She has not been doing well over medically. She has been evaluated by psychiatry and recommended inpatient psych admission. Patient will be discharged to psychiatric unit today. Patient currently denies suicidal ideation but remains very depressed.
--- NOTE | 2018-01-26 17:48 | Electrocardiograph Report ---
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
--- NOTE | 2018-01-27 07:30 | Electrocardiograph Report ---
[address] [place], [place] [address] Test Date: 2018-01-24 Pat Name: Libertad Jacinto Department: 112 Room: 3A22 Gender: F Confidential Investigator: ANDER : 1970 Requested By: Diana Syed Order Number: [id number] Reading MD: Wm Teague Measurements Intervals [place] Rate: 84 P: 20 RI: 152 QRS: 51 QRSD: 89 T: 54 QT: 386 QTc: 427 Interpretive Statements SINUS RHYTHM Electronically Signed On 01-27-2018 7:28:54 EST by Wm Teague
--- NOTE | 2018-01-27 08:18 | Electrocardiograph Report ---
[address] [place], [place] [address] Test Date: 2018-01-25 Pat Name: Libertad Jacinto Department: 115 Room: 3A22 Gender: F Track Maintainer: TERRELL : 1970 Requested By: Lizeth Harvey Order Number: [id number] Reading MD: Wm Teague Measurements Intervals [place] Rate: 78 P: 27 UT: 175 QRS: 37 QRSD: 87 T: 52 QT: 402 QTc: 435 Interpretive Statements SINUS RHYTHM artifact noted, V6 no information Electronically Signed On 01-27-2018 8:16:34 EST by Wm Teague
== END 2018-01-25 15:13 | disposition still patient (30) | DRG 812 ==
LOC: EMEROOARM 13:59 → ICNU 13:59 → SUATTDRO 18:05 → 3ANU 01-24 15:05
PROVIDERS: ADMIT Internal Medicine; ATTEND Internal Medicine

== ENCOUNTER 2018-01-25 13:46 | Inpatient (IN) ==
[2018-01-25] MEDS ORDERED: *HR* LORazepam 2 MG/ML VIAL IM PRN (13:51)
[2018-01-25] MEDS ORDERED: *HR* LORazepam 1 MG TABLET PO PRN (13:51)
[2018-01-25] MEDS ORDERED: MOM Conc 10 ML UD.LIQ PO PRN (13:51)
[2018-01-25] MEDS ORDERED: Haloperidol Lactate 5 MG/ML VIAL IM PRN (13:51)
[2018-01-25] MEDS ORDERED: traZODone 50 MG TABLET PO PRN (13:51)
[2018-01-25] MEDS ORDERED: hydrOXYzine pamoate 25 MG CAPSULE PO PRN (13:51)
[2018-01-25] MEDS ORDERED: Mag Hydrox/Al Hydrox/Simeth 30 ML UDC PO PRN (13:51)
[2018-01-25] MEDS ORDERED: Dextrose Gel 15 GM/37.5 ML TUBE PO PRN (14:20)
[2018-01-25] MEDS: Gabapentin 300 MG CAPSULE PO SCH ×2 (17:08→20:25)
[2018-01-25] MEDS: Insulin LISPRO 300 UNITS/3 ML VIAL SQ SCH ×2 (17:09→21:41)
[2018-01-26] MEDS: Aspirin Enteric Coated 81 MG Tablet PO SCH (09:11)
[2018-01-26] MEDS: Gabapentin 300 MG CAPSULE PO SCH ×3 (09:11→20:11)
[2018-01-26] MEDS: Loratadine 10 MG TABLET PO SCH (09:11)
[2018-01-26] MEDS: Famotidine 20 MG TABLET PO SCH (09:11)
[2018-01-26] MEDS: Insulin LISPRO 300 UNITS/3 ML VIAL SQ SCH ×4 (09:13→20:16)
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
[2018-01-26] MEDS: Venlafaxine XR (24 HR) 150 MG CAP.ER.24H PO SCH (12:11)
[2018-01-26] MEDS: Nicotine 2 MG GUM BC PRN ×2 (13:34→18:01)
[2018-01-26] MEDS ORDERED: rOPINIRole 1 MG TABLET PO SCH (18:00)
[2018-01-26] MEDS: rOPINIRole 1 MG TABLET PO SCH (20:11)
[2018-01-26] MEDS: Ibuprofen 400 MG TABLET PO PRN (20:11)
[2018-01-27] MEDS: Venlafaxine XR (24 HR) 150 MG CAP.ER.24H PO SCH (08:19)
[2018-01-27] MEDS: Gabapentin 300 MG CAPSULE PO SCH ×3 (08:19→20:19)
[2018-01-27] MEDS: Aspirin Enteric Coated 81 MG Tablet PO SCH (08:20)
[2018-01-27] MEDS: Loratadine 10 MG TABLET PO SCH (08:20)
[2018-01-27] MEDS: Famotidine 20 MG TABLET PO SCH (08:20)
[2018-01-27] MEDS: Insulin LISPRO 300 UNITS/3 ML VIAL SQ SCH ×4 (08:57→23:14)
[2018-01-27] MEDS: Ibuprofen 400 MG TABLET PO PRN ×3 (10:55→20:19)
[2018-01-27] MEDS: Nicotine 2 MG GUM BC PRN ×3 (13:53→20:18)
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
[2018-01-27] MEDS: rOPINIRole 1 MG TABLET PO SCH (20:19)
[2018-01-28] MEDS: Gabapentin 300 MG CAPSULE PO SCH (08:37)
[2018-01-28] MEDS: Loratadine 10 MG TABLET PO SCH (08:37)
[2018-01-28] MEDS: Famotidine 20 MG TABLET PO SCH (08:38)
[2018-01-28] MEDS: Venlafaxine XR (24 HR) 150 MG CAP.ER.24H PO SCH (08:38)
[2018-01-28] MEDS: Aspirin Enteric Coated 81 MG Tablet PO SCH (08:38)
[2018-01-28] MEDS: Insulin LISPRO 300 UNITS/3 ML VIAL SQ SCH ×2 (08:39→12:07)
[2018-01-28 10:20] VITALS: BP 149/94
--- NOTE | 2018-01-28 10:40 | Discharge Summary ---
Date of Encounter: 01/28/18 Time of Encounter: 10:30 Diagnosis - Discharge Diagnosis (1) Severe recurrent major depression without psychotic features Status: Acute (2) Antipsychotic-induced akathisia Status: Acute (3) Drug overdose Status: Acute Qualifiers: Encounter type: initial encounter Injury intent: intentional self-harm Qualified Code(s): T50.902A - Poisoning by unspecified drugs, medicaments and biological substances, intentional self-harm, initial encounter Medications - Discharge Medications Prescriptions: RX: Benztropine [Cogentin] 1 mg PO BID 10 Days #20 tablet RX: Lurasidone [Latuda] 40 mg PO HS #10 tablet RX: Gabapentin [Neurontin] 600 mg PO TID 07/28/17 [History] RX: Loratadine [Claritin] 10 mg PO DAILY 07/28/17 [History] RX: Meclizine HCl [Verticalm] 25 mg PO TID 07/28/17 [History] RX: Metoprolol [Lopressor] 50 mg PO DAILY 07/28/17 [History] RX: Omeprazole [PriLOSEC] 40 mg PO DAILY 07/28/17 [History] RX: Potassium Chloride [K-Tab ER] 20 meq PO TID 07/28/17 [History] RX: Ranitidine HCl [Zantac] 300 mg PO DAILY 07/28/17 [History] RX: Spironolactone [Aldactone] 50 mg PO BID 07/28/17 [History] RX: Albuterol Sulfate [Albuterol Inhaler] 2 puff IH [id number] PRN inhaler 08/12/17 [Rx] RX: Aspirin [Adult Aspirin] 81 mg PO DAILY 01/23/18 [History] RX: Ropinirole HCl [Requip] 0.5 mg PO QPM 01/23/18 [History] RX: Venlafaxine XR (24 HR) [Effexor Xr] 150 mg PO DAILY 01/23/18 [History] RX: Benztropine [Cogentin] 1 mg PO BID 10 Days #20 tablet 01/28/18 [Rx] RX: Lurasidone [Latuda] 40 mg PO HS #10 tablet 01/28/18 [Rx] Allergy/AdvReac Type Severity Reaction Status Date / Time acetaminophen [From Percocet] Allergy Weakness Verified 08/02/17 12:11 carisoprodol [From Soma] Allergy Anaphylaxis Verified 07/28/17 14:38 codeine Allergy Anaphylaxis Verified 07/28/17 14:38 Erythromycin Base Allergy Anaphylaxis Verified 07/28/17 14:38 [From Erythrocin] lisinopril Allergy Anaphylaxis Verified 07/28/17 14:38 meperidine [From Demerol] Allergy Anaphylaxis Verified 07/28/17 14:38 olanzapine [From Zyprexa] Allergy Anaphylaxis Verified 07/28/17 14:38 Oxycodone [From Percocet] Allergy Anaphylaxis Verified 07/28/17 14:38 Penicillins Allergy Anaphylaxis Verified 07/28/17 14:38 Tetracyclines Allergy Anaphylaxis Verified 07/28/17 14:38 Provider Date of admission: 01/25/18 13:46 Primary care physician: PCP NONE Psychiatry Exam - Constitutional Vitals: Temp Pulse Resp BP Pulse Ox 97.6 F 75 20 149/94 96 01/28/18 09:00 01/28/18 09:00 01/28/18 09:00 01/28/18 09:00 01/28/18 09:00 General appearance: age & developmentally appropriate, obese - Musculoskeletal Gait: slow Station: relaxed Strength & Tone: normal for patient - Psychiatric Patient Orientation: Yes Person, Yes Time, Yes Place, Yes Circumstance Level of alertness: Alert Behavior: calm Psychomotor activity: Normal Eye Contact: Maintains Eye Contact Mood Description: Euthymic/stable Affect description: congruent with mood Speech Volume: Normal Speech pattern: normal rate, normal rhythm, normal tone, fluent Language & Vocabulary: consistent with education Thought Process: Intact, Logical, Linear, Goal Oriented Thought Content: Yes Intact Attention Span Ability: Capable of Focused Attention Memory Description: Grossly Intact Patient Reliability: Reliable Historian Fund of knowledge: Yes average Intelligence Estimate: Average Judgment: Good Insight: Partial Hospital Course Hospital course: Ms. Jacinto is a 47 year old female who tells me she continues to feel better and is ready to be discharged. She tells me that with the Cogentin, she no longer feels agitated and restless. She is sleeping great, sleeping 9-10 hours, and feeling rested when she wakes up. Her hands are no longer tremulous and her body feels relaxed. Her mood is stable and she feels "more than safe to go home. I feel the best I've felt in years." Her mood is not too elevated, she is goal oriented. She is logical in her thought process. She is not depressed. She will go live with her step mother and will utilize her outpatient therapist to discuss her martial issues. She denies any further side effects of her medications. No SI/SIB/HI. No A/V hallucination. She will be given a Rx for Cogentin 1 mg po bid #60 targeting Akathisia and new Rx for the lower dose Latuda 40 mg po qDay Time spent discussing smoking cessation with patient: 3 to 10 minutes Does patient wish to continue nicotine replacement upon disc: No - Time Spent with Patient Total time spent providing and/or coordinating discharge services: 20 min Less than 30 minutes Assessment and Plan - Patient/Caregiver Discharge Instructions Activity: resume usual activities as tolerated Diet: regular diet - Follow up Plan Follow up with: [facility] [Outside] - 02/02/18 3:40 pm (The above appointment is with Stephy Mathew for outpatient psychiatric assessment and medication management services. You counselor, [place], will call you directly to schedule your next therapy appointment.) Functional capacity at discharge: independent ambulation Overall status at discharge: Stable Disposition: Home, Self-Care Quality - Multiple Antipsychotics Patient discharged on 2 or more antipsychotic medications: No Procedures - Procedures Procedures: Medication Management, Crisis Stabilization, Supportive Therapy, Psychoeducational Therapy
== END 2018-01-28 13:00 | disposition home or self-care (01) | DRG 751 ==
LOC: SUATTDRO 13:46 → 1ANU 13:46
PROVIDERS: ADMIT Psychiatry & Neurology Forensic Psychiatry; ATTEND Psychiatry & Neurology Psychiatry